=== PATIENT | male | born 1980 | race Two or more races ===

== ENCOUNTER 2017-09-27 20:38 | Emergency (ER) | payer SELFPAY ==
[2017-09-27 20:42] VITALS: BP 132/80; PULSE 75; TEMP 98.4; BMI 28.5
--- NOTE | 2017-09-27 20:45 | PDOC ---
Rapid Medical Evaluation Chief Complaint: Chest Pain Time Seen by Provider: 09/27/17 20:42 Medical Evaluation: Allergies Allergy/AdvReac Type Severity Reaction Status Date / Time No Known Allergies Allergy Unverified 09/27/17 20:40 09/27/17 20:42 I have performed a brief in-person evaluation of the patient. The patient presents with chief complaint of: left sided chest pain x 3 days. Reports pain being worse today with dizziness and pain with deep breathing. Denies nausea or diaphoresis Pertinent physical exam findings are: NAD lungs clear bilaterally heart s1 s2 non tender chest abdomen with no tenderness I have ordered the following: ekg, labs The patient will proceed to the ED for further evaluation.
[2017-09-27 21:28] LABS: BASO % 0.8 % (0-2.0); EOS % 2.8 % (0-4.5); HEMATOCRIT 39.4 % (35.4-49); HEMOGLOBIN 13.2 GM/dL (11.7-16.9); LYMPH % 52.1 % (8-40); MCH 29.4 pg (25.7-33.7); MCHC 33.5 g/dl (32.0-35.9); MEAN CELL VOLUME 87.8 fl (80-96); MONO % 11.4 % (3.8-10.2); NEUT % 32.9 % (42.8-82.8); PLATELET COUNT 289 K/MM3 (134-434); RBC 4.49 M/mm3 (4.00-5.60); RDW 13.5 % (11.9-15.9); WHITE BLOOD COUNT 3.6 K/mm3 (4.0-10.0)
[2017-09-27 21:39] LABS: ALBUMIN 3.5 g/dl (3.4-5.0); ANION GAP 8 (8-16); BLOOD UREA NITROGEN 12 mg/dL (7-18); CALCIUM 8.5 mg/dL (8.5-10.1); CHLORIDE 104 mmol/L (98-107); CO2 27 mmol/L (21-32); CREATININE 0.8 mg/dL (0.7-1.3); GLUCOSE,RANDOM 82 mg/dL (74-106); POTASSIUM 4.1 mmol/L (3.5-5.1); SGOT/AST 46 U/L (15-37); SGPT/ALT 54 U/L (12-78); SODIUM 139 mmol/L (136-145)
[2017-09-27 21:42] LABS: ALK PHOS 83 U/L (45-117); BILIRUBIN,TOTAL 0.2 mg/dL (0.2-1.0); TOT PROT 8.2 g/dl (6.4-8.2)
--- NOTE | 2017-09-28 12:17 | EKG ---
Test Reason : Blood Pressure : / mmHG Vent. Rate : 067 BPM Atrial Rate : 067 BPM P-R Int : 122 ms QRS Dur : 100 ms QT Int : 426 ms P-R-T Axes : 036 075 032 degrees QTc Int : 450 ms NORMAL SINUS RHYTHM NORMAL ECG WHEN COMPARED WITH ECG OF 04-OCT-2013 13:58, NONSPECIFIC T WAVE ABNORMALITY NO LONGER EVIDENT IN LATERAL LEADS Confirmed by MD CHILANGO, ERIS ([id number]) on 09/28/2017 12:17:25 PM Referred By: Confirmed By:ERIS KEE MD
== END 2017-09-27 22:36 | disposition left against medical advice (07) ==
LOC: JER 20:38
DX: R07.89 Other chest pain (principal)
CPT/HCPCS: 36415; 80053; 82550; 82553; 84484; 85025; 93005; 93010; 99281-25

== ENCOUNTER 2019-02-17 21:42 | Emergency (ER) | payer OTHER, SELFPAY | END 2019-02-18 08:05 | disposition home or self-care (01) | LOC: JER 21:42 | DX: H66.92 Otitis media, unspecified, left ear (principal) ==

== ENCOUNTER 2019-04-17 11:59 | Emergency (ER) | payer OTHER ==
[2019-04-17] MEDS ORDERED: SODIUM CHLORIDE 1,000 ML IV STA (12:13)
[2019-04-17] MEDS ORDERED: ONDANSETRON 4 MG/2 ML VIAL IVPUSH ONE (12:13)
--- NOTE | 2019-04-17 12:13 | PDOC ---
Rapid Medical Evaluation Time Seen by Provider: 04/17/19 12:11 Medical Evaluation: Allergies Allergy/AdvReac Type Severity Reaction Status Date / Time No Known Allergies Allergy Unverified 02/18/19 00:14 04/17/19 12:11 I have performed a brief in-person evaluation of this patient. The patient presents with a chief complaint of: upper abdominal pain x1 month. Blood streaked vomitus. Pertinent physical exam findings: epigastric and RUQ tenderness I have ordered the following: abd w/u The patient will proceed to the ED for further evaluation. Discharge Disposition - Diagnosis Abdominal pain - Referrals - Patient Instructions - Post Discharge Activity
[2019-04-17 12:20] VITALS: BP 113/87; PULSE 70; TEMP 98.6; BMI 32.5
[2019-04-17] MEDS ORDERED: morphine CARPU-JECT 2 MG/1 ML DISP.SYRIN IVPUSH ONE (12:51)
[2019-04-17] MEDS ORDERED: PANTOPRAZOLE SODIUM 40 MG in SODIUM CHLORIDE 100 ML IVPB ONE (12:52)
[2019-04-17] MEDS ORDERED: MORPHINE SULFATE 2 MG/ML VIAL ONE (13:17)
[2019-04-17] MEDS ORDERED: PANTOPRAZOLE SODIUM 40 MG VIAL ONE (13:18)
[2019-04-17] MEDS ORDERED: ONDANSETRON 4 MG/2 ML VIAL ONE (13:18)
[2019-04-17 13:58] LABS: HEMATOCRIT 39.1 % (35.4-49); HEMOGLOBIN 13.5 GM/dL (11.7-16.9); LYMPH % 62.2 % (8-40); MCH 30.5 pg (25.7-33.7); MCHC 34.6 g/dl (32.0-35.9); MEAN CELL VOLUME 88.2 fl (80-96); MEAN PLT VOLUME 7.5 fl (7.5-11.1); NEUT % 23.8 % (42.8-82.8); PLATELET COUNT 307 K/MM3 (134-434); RBC 4.44 M/mm3 (4.00-5.60); RDW 12.5 % (11.9-15.9); WHITE BLOOD COUNT 4.3 K/mm3 (4.0-10.0)
[2019-04-17 14:33] LABS: ALBUMIN 3.6 g/dl (3.4-5.0); ALK PHOS 67 U/L (45-117); ANION GAP 5 MMOL/L (8-16); BILIRUBIN,TOTAL 0.5 mg/dL (0.2-1); CALCIUM 8.6 mg/dL (8.5-10.1); CHLORIDE 105 mmol/L (98-107); CO2 28 mmol/L (21-32); CREATININE 0.9 mg/dL (0.55-1.3); GLUCOSE,RANDOM 109 mg/dL (74-106); LIPASE 153 U/L (73-393); POTASSIUM 4.2 mmol/L (3.5-5.1); SGOT/AST 36 U/L (15-37); SGPT/ALT 44 U/L (13-61); SODIUM 138 mmol/L (136-145); TOT PROT 8.2 g/dl (6.4-8.2)
[2019-04-17 14:47] LABS: URINE APPEARANCE CLOUDY; URINE BILIRUBIN NEGATIVE (NEGATIVE); URINE COLOR YELLOW; URINE GLUCOSE (UA) NEGATIVE (NEGATIVE); URINE KETONE NEGATIVE (NEGATIVE); URINE LEUK ESTERASE NEGATIVE (NEGATIVE); URINE NITRITE NEGATIVE (NEGATIVE); URINE PROTEIN NEGATIVE (NEGATIVE)
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
[2019-04-17 16:41] LABS: PLATELET ESTIMATE ADEQUATE
== END 2019-04-17 19:10 | disposition home or self-care (01) ==
LOC: JER 11:59
PROC: 3E033GC Introduction of Other Therapeutic Substance into Peripheral Vein, Percutaneous Approach (ICD-10-PCS; principal; 2019-04-17)
PROC: 3E033NZ Introduction of Analgesics, Hypnotics, Sedatives into Peripheral Vein, Percutaneous Approach (ICD-10-PCS; 2019-04-17)
PROC: 3E033GC Introduction of Other Therapeutic Substance into Peripheral Vein, Percutaneous Approach (ICD-10-PCS; 2019-04-17)
DX: K21.9 Gastro-esophageal reflux disease without esophagitis (principal); K80.20 Calculus of gallbladder without cholecystitis without obstruction; Z98.61 Coronary angioplasty status
CPT/HCPCS: 36415; 76705-TC; 80053; 81003; 82550; 82553; 83690; 84484; 85025; 86850; 86900; 86901; 96365; 96375; 99283-25; J7030

== ENCOUNTER 2020-02-27 19:34 | Emergency (ER) | payer OTHER ==
--- NOTE | 2020-02-27 19:38 | PDOC ---
Rapid Medical Evaluation Time Seen by Provider: 02/27/20 19:36 Medical Evaluation: Allergies Allergy/AdvReac Type Severity Reaction Status Date / Time No Known Allergies Allergy Unverified 08/22/13 11:22 02/27/20 19:36 I have performed a brief in-person evaluation of this patient. CC: swelling to right knee x3 days PE: injfrapatellar tenderness. Passive flexion beyond 90 degrees Orders: xray Patient will proceed to ED for further evaluation. Discharge Disposition - Diagnosis Knee pain - Referrals - Patient Instructions - Post Discharge Activity
[2020-02-27 19:39] VITALS: BP 140/62; PULSE 66; TEMP 98.2; BMI 32.5
--- NOTE | 2020-02-27 19:51 | PDOC ---
History of Present Illness - General Chief Complaint: Pain, Acute Stated Complaint: RT KNEE SWOLLEN Time Seen by Provider: 02/27/20 19:36 History Source: Patient - History of Present Illness Initial Comments: 02/27/20 20:09 39-year-old male complaining of right knee pain and swelling with swelling to calf and foot for the last 2 to 3 days. Patient reports that he was doing some squats has pain to the right lateral knee. Patient is able to weight-bear with assistance, and able to kick out without pain. Denies direct trauma to the knee or fall or injury. Past History - Medical History Allergies/Adverse Reactions: Allergies Allergy/AdvReac Type Severity Reaction Status Date / Time No Known Allergies Allergy Unverified 02/27/20 19:39 Home Medications: Ambulatory Orders Atorvastatin Ca [Lipitor] 40 mg PO HS #30 tablet 12/28/19 Blood Pressure Kit-Extra Large [Blood Pressure Monitor] 1 each MC DAILY #1 kit 12/28/19 Sennosides/Docusate Sodium [Senna-Docusate Sodium Tablet] 1 each PO HS #30 tablet 12/28/19 Nicotine Polacrilex [Nicotine Gum] 4 mg BC Q2H PRN #1 box 01/10/20 Pantoprazole Sodium [Protonix -] 40 mg PO DAILY #30 tab 01/23/20 Atorvastatin Ca [Lipitor] 40 mg PO HS 02/15/20 Gabapentin 600 mg PO TID 02/15/20 Buprenorphine HCl/Naloxone HCl [Suboxone 12 mg-3 mg Sl Film] 1 each SL DAILY #7 film MDD 1 02/23/20 Naloxone HCl [Narcan] 4 mg NS ASDIR PRN #1 spray 02/23/20 Nicotine [Nicotine Patch 21 mg/24 hr] 1 each TD DAILY #30 patch.td24 02/23/20 Cardiac Disorders: Yes COPD: No Dementia: No GI Disorders: Yes Hypercholesterolemia: Yes Kidney Stones: No Liver Disease: Yes (elevated LFTs) - Surgical History Appendectomy: No Cardiac Surgery: Yes (ANGIOPLASTY FOR ONE BLOCKAGE. WAS ON ASPIRIN THERAPY. STOPPED. in 2007) Cholecystectomy: No Lung Surgery: No Neurologic Surgery: No Orthopedic Surgery: No - Reproductive History Testicular Surgery: No - Immunization History Immunization Up to Date: No - Psycho-Social/Smoking History Smoking History: Current every day smoker Have you smoked in the past 12 months: No Number of Cigarettes Smoked Daily: 10 Cigars Per Day: 0 Information on smoking cessation initiated: Yes 'Breaking Loose' booklet given: 09/30/13 - Substance Abuse Hx (Audit-C & DAST Scrn) How often the patient has a drink containing alcohol: Never Score: In Men: 4 or > Positive; In Women: 3 or > Positive: 0 Screen Result (Pos requires Nsg. Audit-10AR): Negative In the last yr the pt used illegal drug/Rx for NonMed reason: Yes Score: Yes response is considered Positive: 1 Screen Result (Positive result requires Nsg. DAST-10): Positive Review of Systems - Review of Systems Able to Perform ROS?: Yes Is the patient limited Turkish proficient: No Musculoskeletal: Yes: Other (right knee pain ) *Physical Exam - Vital Signs Last Vital Signs Temp Pulse Resp BP Pulse Ox 98.2 F 66 18 140/62 98 02/27/20 19:35 02/27/20 19:35 02/27/20 19:35 02/27/20 19:35 02/27/20 19:35 - Physical Exam General Appearance: Yes: Appropriately Dressed Extremity: positive: Pedal Edema (+ 2 calf/ pedal edema), Other (full rom to right knee, able to leg raise. lateral knee tenderness) Integumentary: positive: Dry, Warm Neurologic: positive: Fully Oriented, Alert, Normal Mood/Affect ED Progress Note - Progress Note Progress Note: 02/27/20 23:56 A: knee pain/ calf edema P: xray ultrasound : r/o dvt 02/27/20 23:56 Discharge - Discharge Information Problems reviewed: Yes Clinical Impression/Diagnosis: Knee pain Qualifiers: Chronicity: acute Laterality: right Qualified Code(s): M25.561 - Pain in right knee Joint effusion of knee Qualifiers: Laterality: right Qualified Code(s): M25.461 - Effusion, right knee Disposition: HOME - Follow up/Referral Referrals: Alban Robles MD [Staff Physician] - Call tomorrow Cesar Kaiser DO [Staff Physician] - Call tomorrow - Patient Discharge Instructions Patient Printed Discharge Instructions: DI for Knee Effusion Additional Instructions: use crutches as instructed. weight bear as tolerated. follow up with orthopedic as soon as possible elevated your leg , apply ice to the area return for any worsening symptoms. - Post Discharge Activity Work/Back to School Note: Back to Work
[2020-02-27] MEDS ORDERED: ACETAMINOPHEN 500 MG TABLET (FP) PO ONE (20:01)
[2020-02-27] MEDS ORDERED: ACETAMINOPHEN 500 MG TABLET (FP) ONE (20:24)
== END 2020-02-27 22:04 | disposition home or self-care (01) ==
LOC: JERFT 19:34
DX: M25.561 Pain in right knee (principal); M25.461 Effusion, right knee
CPT/HCPCS: 73560-TC-RT-FY; 93971-TC; 99284-25

== ENCOUNTER 2020-03-13 10:42 | Emergency (ER) | payer OTHER ==
[2020-03-13 10:51] VITALS: BMI 33.9
[2020-03-13] MEDS ORDERED: ACETAMINOPHEN 1000 MG/100 ML VIAL (NON FORMULARY) IVPB ONE (11:48)
[2020-03-13] MEDS ORDERED: METOCLOPRAMIDE HCL INJECTION 10 MG/2 ML VIAL IVPUSH ONE (11:48)
[2020-03-13] MEDS ORDERED: METOCLOPRAMIDE HCL INJECTION 10 MG/2 ML VIAL ONE (12:10)
[2020-03-13] MEDS ORDERED: ACETAMINOPHEN INJECTION 100 ML IVPB ONE (12:10)
[2020-03-13 12:29] LABS: BASO % 0.7 % (0-2.0); EOS % 6.3 % (0-4.5); HEMATOCRIT 35.9 % (35.4-49); HEMOGLOBIN 12.1 GM/dL (11.7-16.9); LYMPH % 57.4 % (8-40); MCH 30.3 pg (25.7-33.7); MCHC 33.6 g/dl (32.0-35.9); MEAN CELL VOLUME 89.9 fl (80-96); MEAN PLT VOLUME 7.5 fl (7.5-11.1); MONO % 12.4 % (3.8-10.2); NEUT % 23.2 % (42.8-82.8); PLATELET COUNT 262 K/MM3 (134-434); RBC 3.99 M/mm3 (4.00-5.60); RDW 12.9 % (11.9-15.9)
[2020-03-13 12:59] LABS: ALBUMIN 3.2 g/dl (3.4-5.0); BILIRUBIN,TOTAL 0.2 mg/dL (0.2-1); BLOOD UREA NITROGEN 12.5 mg/dL (7-18); CALCIUM 8.7 mg/dL (8.5-10.1); CREATININE 0.9 mg/dL (0.55-1.3); TOT PROT 7.3 g/dl (6.4-8.2)
--- NOTE | 2020-03-13 13:41 | PDOC ---
Documentation entered by Lydia Barksdale SCRIBE, acting as scribe for Ileana Maurice MD. Ileana Maurice MD: This documentation has been prepared by the Apolonia madrigal Brenda, SCRIBE, under my direction and personally reviewed by me in its entirety. I confirm that the documentation accurately reflects all work, treatment, procedures, and medical decision making performed by me. History of Present Illness - General Chief Complaint: Lightheaded Stated Complaint: DIZZNESS/HEADACHE Time Seen by Provider: 03/13/20 11:17 History Source: Patient Exam Limitations: No Limitations - History of Present Illness Initial Comments: 03/13/20 11:44 39 YOM with a significant PMH of opiate dependance (on suboxone daily), GERD, chronic back pain, nicotine dependance, CAD s/p angioplasty and pre-diabetes who presents to the ED for evaluation of 2 days of dizziness and a frontal headache. The patient states that for the past 2 days he has been feeling dizzy, accompanied by acute mild blurry vision and mild SOB. He also endorses a frontal headache, that he states is pressure-like in nature, 2 episodes of NBNB vomiting, weakness, mild chest pain, a mild cough and constipation. He also notes feeling ill upon eating. Denies blood thinners. Denies fever, chills, palpitation, Diarrhea, abdominal pain, bladder and bowel problems, leg swelling, No sick contacts or travel. No new changes in medications. Allergies: None Past Medical History: opiate dependance (on suboxone daily), GERD, chronic back pain, nicotine dependance, CAD s/p angioplasty and pre-diabetes Social history: Recent smoker (uses patch), opiate dependance Surgical history: Angioplasty Meds: as documented in EMR 03/13/20 14:05 Past History - Medical History Allergies/Adverse Reactions: Allergies Allergy/AdvReac Type Severity Reaction Status Date / Time No Known Allergies Allergy Unverified 03/13/20 10:51 Home Medications: Ambulatory Orders Nicotine [Nicotine Patch 21 mg/24 hr] 1 each TD DAILY #30 patch.td24 02/23/20 Buprenorphine HCl/Naloxone HCl [Suboxone 12 mg-3 mg Sl Film] 1 each SL DAILY #14 film MDD 2 03/01/20 Omeprazole 20 mg PO DAILY #30 tablet. 03/01/20 Cardiac Disorders: Yes COPD: No Dementia: No GI Disorders: Yes (gerd) Hypercholesterolemia: Yes Kidney Stones: No Liver Disease: Yes (elevated LFTs) - Surgical History Appendectomy: No Cardiac Surgery: Yes (stent 2008) Cholecystectomy: No Lung Surgery: No Neurologic Surgery: No Orthopedic Surgery: No - Reproductive History Testicular Surgery: No - Immunization History Immunization Up to Date: No - Psycho-Social/Smoking History Smoking History: Current every day smoker Have you smoked in the past 12 months: No Number of Cigarettes Smoked Daily: 10 Cigars Per Day: 0 Information on smoking cessation initiated: No 'Breaking Loose' booklet given: 09/30/13 - Substance Abuse Hx (Audit-C & DAST Scrn) How often the patient has a drink containing alcohol: Never Score: In Men: 4 or > Positive; In Women: 3 or > Positive: 0 Screen Result (Pos requires Nsg. Audit-10AR): Negative Review of Systems - Review of Systems Able to Perform ROS?: Yes Comments:: 03/13/20 11:52 Constitutional: no fevers or chills. HEENT: (+) Headache (+) Dizziness (+) blurry vision. no vision loss. no eye pain/discharge or tinnitis. No congestion. No hearing disturbances. CVS: (+) CP. no syncope. Resp: (+) Mild SOB (+) Mild Cough Gastrointestinal: (+) Nausea (+) Vomiting. (+) Constipation. no abdominal pain. Genitourinary: no urinary sx, hematuria. MUSCULOSKELETAL: No joint pain and swelling. No neck or back pain. SKIN: no redness or skin changes, no discharge, no rash. No wounds. Hematologic: no easy bruising/bleeding. NEUROLOGIC: No LOC or altered mental status. No numbness or tingling. Psych: no anxiety or depression Allergic/Immunologic: no allergies All other systems reviewed and negative, or as documented in HPI. 03/13/20 14:05 *Physical Exam - Vital Signs Last Vital Signs Temp Pulse Resp BP Pulse Ox 97.8 F 61 18 97/59 L 99 03/13/20 10:49 03/13/20 10:49 03/13/20 10:49 03/13/20 10:49 03/13/20 10:49 - Physical Exam 03/13/20 11:56 General: Well appearing, awake and alert, NAD. HEENT: NCAT, PERRL, EOMI, clear conjunctiva, anicteric, moist mucous membranes, clear oropharynx, no oral lesions.. Neck: neck supple, FROM Resp: CTAB, normal and even respirations, no respiratory distress CVS: RRR, no murmurs, 2+ peripheral pulses throughout, no peripheral edema Abdomen: (+) Right sided vertical surgical scar, well healed. soft, NTND, no rebound or guarding. No CVAT. Back: nontender, normal inspection and ROM MSK: no edema, FLORES x4, ROM intact. No clubbing or cyanosis. normal bulk and tone. Extremities: no calf tenderness Neuro: Alert, oriented to person time and place. CN II-XII grossly intact. Strength prox and distally 5/5 throughout. Sensation grossly intact to light touch. FLORES x4. No cerebellar signs, no dysmetria, bilateral finger to nose and heel to blackman equal and symmetric. Speech clear. Skin: warm and well perfused, cap refill <2 sec, normal color 03/13/20 14:05 Heart Score/ECG Review #1 ECG reviewed & interpreted by me at: 14:10 General ECG Interpretation: Sinus Rhythm 03/13/20 14:04 EKG sinus bradycardia, 50 bpm, no interval abnormalities, narrow QRS, ST and T wave segments and morphology normal. Nonspecific T wave abnormalities ED Treatment Course - LABORATORY CBC & Chemistry Diagram: 03/13/20 12:15 03/13/20 12:15 Medical Decision Making - Medical Decision Making 03/13/20 13:38 Vital Signs Temp Pulse Resp BP Pulse Ox 97.8 F 61 18 97/59 L 99 03/13/20 10:49 03/13/20 10:49 03/13/20 10:49 03/13/20 10:49 03/13/20 10:49 vitals reviewed, wnl. mentating, no fever, nontoxic appearing. no focal neuro deficits primarily headache since yesterday DDX headache: migraine, tension, cluster headache, SAH, CVA, head bleed/ICH. - no trauma no infectious sx, no meningeal findings or sx. no chest pain or sob. MDM: The patient presents with an acute onset headache for 2 day in duration. No history of anticoagulation, trauma, , cancer or immunocompromised state. Mental status was normal, no neurological deficits were noted. Based on the patient's history and physical there is very low clinical suspicion for significant intracranial pathology. The headache was NOT sudden onset, NOT maximal at onset, there are NO neurologic findings, the patient does NOT have a fever, the patient does NOT have any jaw claudication, the patient does NOT endorse a clotting disorder, patient DENIES any trauma or eye pain and the headache is NOT associated with dizziness or ataxia. Kernig and Brudzinski signs are negative, no petechiae, no photophobia, no dysarthria, no facial asymmetry, and no focal deficits. Very low clinical suspicion for meningitis. No evidence of subarachnoid hemorrhage, intracranial bleed, meningitis, encephalitis, or intracranial mass. Patient denies new weakness on one side of the body, diplopia, vertigo, slurred speech, headache, or difficulty walking. IV was placed and tylenol/reglan given with improvement/relief of symptoms. CT head was negative for acute bleed, infarct, mass, or shift. labs and lytes also wnl, neg trop, EKG is unremarkable, no ischemic findings, sinus bradycardia.. doubt ACS or arrhythmia. no LP indicated as no s/s to suggest meningitis. he has no chest pain or sob. headache has resolved, feels improved, gait stable, alton PO intake, wishes to go home. The patient improved significantly and was discharged in stable condition. Recommendations were given for follow-up with PCP in 1-2 days and to return to the ED for worsening of headache or any other concerns 03/13/20 13:40 03/13/20 14:06 03/13/20 14:07 Discharge - Discharge Information Problems reviewed: Yes Clinical Impression/Diagnosis: Dizziness Headache Qualifiers: Headache type: unspecified Headache chronicity pattern: acute headache Intractability: not intractable Qualified Code(s): R51 - Headache Condition: Improved Disposition: HOME - Admission No - Follow up/Referral Referrals: Taz Abrams MD [Staff Physician] - Santiago Epstein MD [Staff Physician] - Colt Rivera MD [Staff Physician] - - Patient Discharge Instructions Patient Printed Discharge Instructions: DI for Headache Additional Instructions: 1) Please follow-up with your primary care doctor in the next 1-2 days. Please call tomorrow for for any urgent issues. please follow up with neurologist for management of your headache. referrals have been provided. 2) You were given a copy of the tests performed today. Please bring the results with you and review them with your primary care doctor. Your laboratory / imaging results were normal, including CT scan 3) If you have any worsening of symptoms or any other concerns please return to the ED immediately. Return if worsening symptoms including fevers, headache, vomiting, visual or hearing disturbances, abdominal pain, chest pain, shortness of breath, syncope, dehydration, inability to take things by mouth/vomiting, altered mental status, or worsening concerning symptoms. 4) Please continue taking your home medications as directed. you can take t ylenol 650-975 mg every 6 hours as needed OR ibuprofen 400-600mg every 6 hours as needed for your headache Stay well hydrated and rest adequately. Make an appointment. If you cannot follow-up with your primary care doctor please return to the ED - Post Discharge Activity Work/Back to School Note: Back to Work
[2020-03-13 14:24] VITALS: BP 110/60; PULSE 60; TEMP 97.4
--- NOTE | 2020-03-14 12:37 | EKG ---
Test Reason : Blood Pressure : / mmHG Vent. Rate : 049 BPM Atrial Rate : 049 BPM P-R Int : 156 ms QRS Dur : 088 ms QT Int : 456 ms P-R-T Axes : 040 074 033 degrees QTc Int : 411 ms SINUS BRADYCARDIA OTHERWISE NORMAL ECG WHEN COMPARED WITH ECG OF 18-FEB-2019 04:28, NO SIGNIFICANT CHANGE WAS FOUND Confirmed by JASWINDER ANDERSON MD ([id number]) on 03/14/2020 12:36:49 PM Referred By: Confirmed By:JASWINDER ANDERSON MD
== END 2020-03-13 14:36 | disposition home or self-care (01) ==
LOC: JER 10:42
PROC: 3E033NZ Introduction of Analgesics, Hypnotics, Sedatives into Peripheral Vein, Percutaneous Approach (ICD-10-PCS; principal; 2020-03-13)
PROC: 3E033GC Introduction of Other Therapeutic Substance into Peripheral Vein, Percutaneous Approach (ICD-10-PCS; 2020-03-13)
DX: R51 Headache (principal)
CPT/HCPCS: 36415; 70450-TC; 80053; 82550; 82553; 84484; 85025; 93005; 93010; 99285-25; J0131

== ENCOUNTER 2020-04-05 16:20 | Inpatient (IN) | payer OTHER ==
[2020-04-05 17:22] VITALS: BMI 32.4
--- NOTE | 2020-04-05 19:09 | BHS.RME ---
Substance Use & Tx History - Substance Use History Fentanyl Substance amount: 15 bags Frequency of use: Daily Substance route: Injection (ex: intravenous or skin popping) Date of Last Use: 04/05/20 - Last Treatment Date of last treatment: 06/29/2012- 07/01/2012 Where was last treatment: Detox Physical/Psych/Mental Status - Behavior General Behavior: Decreased activity Eye Contact: Normal - Cooperativeness Cooperativeness: Cooperative - Thinking Thought Processes: Logical Thought content: Future oriented - Physical Health Problems Is patient presently having any pain?: Yes (back pain) Does patient presently have any injuries (include location): No Does patient currently have a fever: No Is patient : No COWS - Scale Resting Pulse: 0= [place] 80 or Below Sweatin=Flushed/Facial Moisture Restless Observation: 0= Sits Still Pupil Size: 0= Normal to Room Light Bone or Joint Aches: 4=Acute Joint/Muscle Pain Runny Nose/ Eye Tearin= None GI Upset > 30mins: 1= Stomach Cramp Tremor Observation: 2= Slight Tremor Visible Yawning Observation: 1= 1-2x During Session Anxiety or Irritability: 4=Extreme Anxiety Goose Flesh Skin: 3=Piloerection COWS Score: 17 Treatment Recommendation - Level of Care Level of Care: Opioid Treatment Program (OTP)
--- NOTE | 2020-04-05 19:15 | HP ---
COWS - Scale Resting Pulse: 0= [place] 80 or Below Sweatin=Flushed/Facial Moisture Restless Observation: 0= Sits Still Pupil Size: 0= Normal to Room Light Bone or Joint Aches: 4=Acute Joint/Muscle Pain Runny Nose/ Eye Tearin= None GI Upset > 30mins: 1= Stomach Cramp Tremor Observation: 2= Slight Tremor Visible Yawning Observation: 1= 1-2x During Session Anxiety or Irritability: 4=Extreme Anxiety Goose Flesh Skin: 3=Piloerection COWS Score: 17 CIWA Score - Admission Criteria OASAS Guidelines: Admission for Medically Managed Detox: Requires at least one of the followin. CIWA greater than 12 2. Seizures within the past 24 hours 3. Delirium tremens within the past 24 hours 4. Hallucinations within the past 24 hours 5. Acute intervention needed for co occurring medical disorder 6. Acute intervention needed for co occurring psychiatric disorder 7. Severe withdrawal that cannot be handled at a lower level of care (continued vomiting, continued diarrhea, abnormal vital signs) requiring intravenous medication and/or fluids 8. Admitting History and Physical - Past Medical History Gastrointestinal: Yes: GERD Hepatobiliary: Yes: Cholecystitis, Hepatitis C, Other Psych: Yes: Addictions, Depression - Smoking History Smoking history: Current every day smoker Have you smoked in the past 12 months: No Aproximately how many cigarettes per day: 10 - Alcohol/Substance Use History of Substance Use: reports: Cocaine, Heroin - Social History ADL: Independent History of Recent Travel: No Admission ROS [facility] Chief Complaint: Opiate withdrawal symptoms Allergies/Adverse Reactions: Allergies Allergy/AdvReac Type Severity Reaction Status Date / Time No Known Allergies Allergy Unverified 04/05/20 19:49 History of Present Illness: 39 years old male with 3 months of Fentanyl dependent is seeking admission to detox. His last admission was for the 06/29/2012-07/01/2012 and he reports that he relapsed 2 months ago. He uses 15 bags of Fentanyl daily. He has medical history of GERD, chronic back pain, seizure, CAD and Pre-Diabetes, hyperlipidemia, Hep. C and psych. history of depression. He denies suicide a ttempt / suicidal ideation at this time. He is employed in construction, lives with his family and denies any legal issues. He reports blackouts and denies history of overdose. Exam Limitations: No Limitations - Ebola screening Have you traveled outside of the country in the last 21 days: No Have you had contact with anyone from an Ebola affected area: No Have you been sick,other than usual withdrawal symptoms: No Do you have a fever: No - Review of Systems Constitutional: Chills, Malaise, Night Sweats, Changes in sleep EENT: reports: No Symptoms Reported Respiratory: reports: No Symptoms reported Cardiac: reports: No Symptoms Reported GI: reports: Constipated, Nausea, Poor Fluid Intake, Abdominal cramping : reports: No Symptoms Reported Musculoskeletal: reports: Back Pain Integumentary: reports: Flushing Neuro: reports: Headache, Tremors Endocrine: reports: No Symptoms Reported Hematology: reports: No Symptoms Reported Psychiatric: reports: Mood/Affect Appropiate, Orientated x3, Anxious Other Systems: Reviewed and Negative Patient History - Patient Medical History Hx Anemia: No Hx Asthma: No Hx Chronic Obstructive Pulmonary Disease (COPD): No Hx Cancer: No Hx Cardiac Disorders: Yes (CAD) Hx Congestive Heart Failure: No Hx Hypertension: No Hx Hypercholesterolemia: Yes Hx Pacemaker: No HX Cerebrovascular Accident: No Hx Seizures: Yes (Not on medication) Hx Diabetes: Yes (Pre- DM) Hx Gastrointestinal Disorders: Yes (GERD) Hx Liver Disease: No Hx Genitourinary Disorders: No Hx Sexually Transmitted Disorders: No Hx Renal Disease (ESRD): No Hx Thyroid Disease: No Hx Human Immunodeficiency Virus (HIV): No (Negative) Hx Hepatitis C: Yes (Not on medication) Hx Depression: Yes (Not on medication) Hx Suicide Attempt: No (Denies suicidal ideation at this timer) Hx Bipolar Disorder: No Hx Schizophrenia: No - Patient Surgical History Past Surgical History: Yes Hx Neurologic Surgery: No Hx Cataract Extraction: No Hx Cardiac Surgery: Yes (stent 2008) Hx Lung Surgery: No Hx Appendectomy: No Hx Cholecystectomy: No Hx Genitourinary Surgery: No Hx Orthopedic Surgery: No Anesthesia Reaction: No - PPD History Previous Implant?: Yes (PPD Positive) Documented Results: Positive w/o proof Implanted On Prior R Admission?: No PPD to be Administered?: No - Reproductive History Patient is a Female of Child Bearing Age (11 -55 yrs old): No (Male) - Smoking Cessation Smoking history: Current every day smoker Have you smoked in the past 12 months: No Aproximately how many cigarettes per day: 10 Hx Chewing Tobacco Use: No Initiated information on smoking cessation: Yes 'Breaking Loose' booklet given: 04/05/20 - Substance & Tx. History Hx Alcohol Use: No Hx Substance Use: Yes Substance Use Type: Marijuana, Opiates (Fentanyl) Hx Substance Use Treatment: Yes ([facility]) - Substances abused Other Other (specify): FENTANYL Substance route: Injection Frequency: Daily Amount used: 15 bags Age of first use: 38 Date of last use: 04/05/20 Admission Physical Exam S - Vital Signs Vital Signs: Vital Signs - 24 hr 04/05/20 17:18 Temperature 97.7 F Pulse Rate 77 Respiratory 20 Rate Blood Pressure 119/63 - Physical General Appearance: Yes: Moderate Distress, Tremorous, Sweating, Anxious HEENTM: Yes: Within Normal Limits Respiratory: Yes: Lungs Clear, Normal Breath Sounds, No Respiratory Distress Neck: Yes: Within Normal Limits Breast: Yes: Breast Exam Deferred Cardiology: Yes: Regular Rhythm, Regular Rate Abdominal: Yes: Normal Bowel Sounds Genitourinary: Yes: Within Normal Limits Back: Yes: Normal Inspection Musculoskeletal: Yes: Back pain Extremities: Yes: Tremors Neurological: Yes: Within Normal Limits Integumentary: Yes: Warm Lymphatic: Yes: Within Normal Limits - Diagnostic (1) Opioid dependence with withdrawal Current Visit: Yes Status: Acute (2) Nicotine dependence Current Visit: Yes Status: Chronic Qualifiers: Nicotine product type: cigarettes Substance use status: uncomplicated Qualified Code(s): F17.210 - Nicotine dependence, cigarettes, uncomplicated (3) Hyperlipidemia Current Visit: Yes Status: Chronic Qualifiers: Hyperlipidemia type: unspecified Qualified Code(s): E78.5 - Hyperlipidemia, unspecified (4) Seizure Current Visit: Yes Status: Chronic (5) Hep C w/o coma, chronic Current Visit: Yes Status: Chronic (6) CAD (coronary artery disease) Current Visit: Yes Status: Chronic (7) Pre-diabetes Current Visit: Yes Status: Chronic (8) Chronic back pain Current Visit: Yes Status: Chronic Qualifiers: Back pain location: low back pain (9) GERD (gastroesophageal reflux disease) Current Visit: Yes Status: Chronic Qualifiers: Esophagitis presence: esophagitis presence not specified Qualified Code(s): K21.9 - Gastro-esophageal reflux disease without esophagitis Comment: on protonix - f/u with primary Cleared for Admission S - Detox or Rehab [facility] Level of Care: Medically Managed Detox Regimen/Protocol: Methadone Claeared for Rehab Admission: No Breathalyzer - Breathalyzer Breathalyzer: 0 Urine Drug Screen - Test Device Lot number: [id number] Expiration date: 02/19/22 - Control Is test valid?: Yes - Results Drug screen NEGATIVE: No Urine drug screen results: THC-Marijuana, FEN-Fentanyl Inpatient Rehab Admission - Rehab Decision to Admit Inpatient rehab admission?: No
[2020-04-05] MEDS ORDERED: METHOCARBAMOL 500 MG TABLET PO PRN (19:49)
[2020-04-05] MEDS ORDERED: NICOTINE POLACRILEX 2 MG GUM BUC PRN (19:49)
[2020-04-05] MEDS ORDERED: ACETAMINOPHEN 325 MG TABLET (FP) PO PRN ×2 (19:49)
[2020-04-05] MEDS ORDERED: METHADONE HCL 10 MG TABLET (FOR DETOX USE ONLY) PO ONE (19:49)
[2020-04-05] MEDS ORDERED: MAGNESIUM CITRATE 300 ML BOTTLE PO PRN (19:49)
[2020-04-05] MEDS ORDERED: MAG HYDROX/AL HYDROX/SIMETH 30 ML UNIT-DOSE CUP PO PRN (19:49)
[2020-04-05] MEDS ORDERED: cloNIDine HCL 0.1 MG TABLET PO PRN (19:49)
[2020-04-05] MEDS ORDERED: BISMUTH SUBSALICYLATE 524 MG/30 ML UD PO PRN (19:49)
[2020-04-05] MEDS ORDERED: IBUPROFEN 400 MG TABLET (FP) PO PRN (19:49)
[2020-04-05] MEDS ORDERED: MENTHOL/PHENOL 1 EACH UD MM PRN (19:49)
[2020-04-05] MEDS ORDERED: hydrOXYzine PAMOATE 25 MG CAPSULE (FP) PO PRN (19:49)
[2020-04-05] MEDS ORDERED: ONDANSETRON *ODT* 4 MG TABLET SL PRN (19:49)
[2020-04-05] MEDS ORDERED: MAGNESIUM HYDROX 2400MG/30ML ORAL SUSPENSION 30 ML CUP PO PRN (19:49)
[2020-04-05] MEDS: THIAMINE HCL 100 MG TABLET (FP) PO SCH (22:35)
[2020-04-05] MEDS: MELATONIN 5 MG TABLETS PO SCH (22:35)
--- NOTE | 2020-04-06 09:04 | EKG ---
Test Reason : Blood Pressure : / mmHG Vent. Rate : 060 BPM Atrial Rate : 060 BPM P-R Int : 134 ms QRS Dur : 100 ms QT Int : 414 ms P-R-T Axes : 040 079 024 degrees QTc Int : 414 ms NORMAL SINUS RHYTHM NORMAL ECG WHEN COMPARED WITH ECG OF 13-MAR-2020 14:08, NO SIGNIFICANT CHANGE WAS FOUND Confirmed by Christa Das ([id number]) on 04/06/2020 9:03:47 AM Referred By: Ford Chapman Confirmed By:Christa Das
[2020-04-06 09:17] LABS: HEMATOCRIT 38.1 % (35.4-49); HEMOGLOBIN 12.8 GM/dL (11.7-16.9); MCH 29.8 pg (25.7-33.7); MCHC 33.5 g/dl (32.0-35.9); MEAN CELL VOLUME 88.9 fl (80-96); MEAN PLT VOLUME 8.4 fl (7.5-11.1); PLATELET COUNT 246 K/MM3 (134-434); RBC 4.29 M/mm3 (4.00-5.60); WHITE BLOOD COUNT 6.6 K/mm3 (4.0-10.0)
[2020-04-06 09:27] LABS: ALBUMIN 2.9 g/dl (3.4-5.0); BILIRUBIN,TOTAL 0.8 mg/dL (0.2-1); BLOOD UREA NITROGEN 11.1 mg/dL (7-18); CALCIUM 8.4 mg/dL (8.5-10.1); CREATININE 0.7 mg/dL (0.55-1.3); POTASSIUM 3.9 mmol/L (3.5-5.1); TOT PROT 7.3 g/dl (6.4-8.2)
[2020-04-06] MEDS ORDERED: METHADONE (DETOX) 20 MG, METHADONE (DETOX) 5 MG PO ONE (10:00)
[2020-04-06] MEDS ORDERED: METHADONE HCL 5 MG TABLET (FOR DETOX USE ONLY) ONE (10:14)
[2020-04-06] MEDS ORDERED: METHADONE HCL 10 MG TABLET (FOR DETOX USE ONLY) ONE (10:14)
[2020-04-06] MEDS: PANTOPRAZOLE 20 MG TABLET PO SCH (10:27)
[2020-04-06] MEDS: PRENATAL VITAMINS W/ FOLIC ACID TABLET (FP) PO SCH (10:29)
[2020-04-06] MEDS: NICOTINE 14 MG/24 HOURS TOPICAL PATCH TD SCH (10:29)
--- NOTE | 2020-04-06 11:46 | PN ---
BHS COWS - Scale Resting Pulse: 0= [place] 80 or Below Sweatin= Beads of Sweat on Face Restless Observation: 1= Difficult to Sit Still Pupil Size: 0= Normal to Room Light Bone or Joint Aches: 2= Severe Diffuse Aches Runny Nose/ Eye Tearin= None GI Upset > 30mins: 0= None Tremor Observation of Outstretched Hands: 2= Slight Tremor Visible Yawning Observation: 1= 1-2x During Session Anxiety or Irritability: 2=Irritable/Anxious Goose Flesh Skin: 0=Smooth Skin COWS Score: 11 S Progress Note (SOAP) Subjective: c/o sweats, irritability, anxiety, muscle aches, and shakes. Objective: 04/06/20 11:45 Vital Signs 04/06/20 04/06/20 06:36 08:45 Temperature 97.0 F L 97.3 F L Pulse Rate 89 68 Respiratory 18 18 Rate Blood Pressure 143/83 102/64 O2 Sat by Pulse 99 99 Oximetry (%) Laboratory Last Values WBC 6.6 K/mm3 (4.0-10.0) 04/06/20 07:45 RBC 4.29 M/mm3 (4.00-5.60) 04/06/20 07:45 Hgb 12.8 GM/dL (11.7-16.9) 04/06/20 07:45 Hct 38.1 % (35.4-49) 04/06/20 07:45 MCV 88.9 fl (80-96) 04/06/20 07:45 MCH 29.8 pg (25.7-33.7) 04/06/20 07:45 MCHC 33.5 g/dl (32.0-35.9) 04/06/20 07:45 RDW 13.0 % (11.9-15.9) 04/06/20 07:45 Plt Count 246 K/MM3 (134-434) 04/06/20 07:45 MPV 8.4 fl (7.5-11.1) D 04/06/20 07:45 Sodium 139 mmol/L (136-145) 04/06/20 07:45 Potassium 3.9 mmol/L (3.5-5.1) 04/06/20 07:45 Chloride 105 mmol/L (98-107) 04/06/20 07:45 Carbon Dioxide 30 mmol/L (21-32) 04/06/20 07:45 Anion Gap 5 MMOL/L (8-16) L 04/06/20 07:45 BUN 11.1 mg/dL (7-18) 04/06/20 07:45 Creatinine 0.7 mg/dL (0.55-1.3) 04/06/20 07:45 Est GFR (CKD-EPI)AfAm 135.86 04/06/20 07:45 Est GFR (CKD-EPI)NonAf 117.22 04/06/20 07:45 Random Glucose 104 mg/dL (74-106) 04/06/20 07:45 Calcium 8.4 mg/dL (8.5-10.1) L 04/06/20 07:45 Total Bilirubin 0.8 mg/dL (0.2-1) 04/06/20 07:45 AST 39 U/L (15-37) H 04/06/20 07:45 ALT 88 U/L (13-61) H 04/06/20 07:45 Alkaline Phosphatase 125 U/L (45-117) H 04/06/20 07:45 Total Protein 7.3 g/dl (6.4-8.2) 04/06/20 07:45 Albumin 2.9 g/dl (3.4-5.0) L 04/06/20 07:45 Labs noted. Assessment: 04/06/20 11:46 AOX3, in no acute respiratory distress. Full ROM, ambulating in the unit. Withdrawal symptoms. Plan: continue detox.
[2020-04-06] MEDS: MELATONIN 5 MG TABLETS PO SCH (22:40)
[2020-04-06] MEDS: THIAMINE HCL 100 MG TABLET (FP) PO SCH (22:41)
[2020-04-07] MEDS ORDERED: METHADONE HCL 10 MG TABLET (FOR DETOX USE ONLY) PO ONE (10:00)
[2020-04-07] MEDS: NICOTINE 14 MG/24 HOURS TOPICAL PATCH TD SCH (10:29)
[2020-04-07] MEDS: PRENATAL VITAMINS W/ FOLIC ACID TABLET (FP) PO SCH (10:29)
--- NOTE | 2020-04-07 12:12 | PN ---
BHS COWS - Scale Resting Pulse: 0= [place] 80 or Below Sweatin= Chills/Flushing Restless Observation: 0= Sits Still Pupil Size: 1= Pupils >than Normal Bone or Joint Aches: 1= Mild Discomfort Runny Nose/ Eye Tearin= Nasal Congestion GI Upset > 30mins: 1= Stomach Cramp Tremor Observation of Outstretched Hands: 1= Tremor [place], Not Seen Yawning Observation: 1= 1-2x During Session Anxiety or Irritability: 1=Feels Anxious/Irritable Goose Flesh Skin: 0=Smooth Skin COWS Score: 8 BHS Progress Note (SOAP) Subjective: 39 years old male was admitted on 04/05/20 for opiate withdrawal sx management treating with methadone detox regiment feels tired resting in bed comfortably trouble sleep at night limited conversation with staff Objective: 04/07/20 12:16 Vital Signs - 24 hr 04/06/20 04/06/20 04/07/20 13:28 16:44 06:29 Temperature 96.4 F L 96.9 F L 97.1 F L Pulse Rate 73 67 78 Respiratory 18 18 18 Rate Blood Pressure 106/67 109/68 129/78 O2 Sat by Pulse 99 98 Oximetry (%) 04/07/20 09:10 Temperature 98.2 F Pulse Rate 64 Respiratory 18 Rate Blood Pressure 128/78 O2 Sat by Pulse 98 Oximetry (%) Laboratory Tests 04/05/20 04/06/20 04/06/20 20:00 07:45 07:45 WBC 6.6 RBC 4.29 Hgb 12.8 Hct 38.1 MCV 88.9 MCH 29.8 MCHC 33.5 RDW 13.0 Plt Count 246 MPV 8.4 D Sodium Potassium Chloride Carbon Dioxide Anion Gap BUN Creatinine Est GFR (CKD-EPI)AfAm Est GFR (CKD-EPI)NonAf Random Glucose Calcium Total Bilirubin AST ALT Alkaline Phosphatase Total Protein Albumin Syphilis Serology Non-reactive COVID-19 (NOELLE) Not detected 04/06/20 07:45 WBC RBC Hgb Hct MCV MCH MCHC RDW Plt Count MPV Sodium 139 Potassium 3.9 Chloride 105 Carbon Dioxide 30 Anion Gap 5 L BUN 11.1 Creatinine 0.7 Est GFR (CKD-EPI)AfAm 135.86 Est GFR (CKD-EPI)NonAf 117.22 Random Glucose 104 Calcium 8.4 L Total Bilirubin 0.8 AST 39 H ALT 88 H Alkaline Phosphatase 125 H Total Protein 7.3 Albumin 2.9 L Syphilis Serology COVID-19 (NOELLE) lab noted Assessment: 04/07/20 12:16 opiate withdrawal Plan: methadone regiment
[2020-04-07] MEDS: PANTOPRAZOLE 20 MG TABLET PO SCH (12:16)
[2020-04-07 21:51] VITALS: TEMP 97.1
[2020-04-07] MEDS: THIAMINE HCL 100 MG TABLET (FP) PO SCH (22:49)
[2020-04-07] MEDS: MELATONIN 5 MG TABLETS PO SCH (22:49)
[2020-04-08] MEDS ORDERED: METHADONE HCL 5 MG TABLET (FOR DETOX USE ONLY) ONE (08:44)
[2020-04-08] MEDS ORDERED: METHADONE HCL 10 MG TABLET (FOR DETOX USE ONLY) ONE (08:44)
[2020-04-08 09:19] VITALS: BP 110/62; PULSE 64
[2020-04-08] MEDS: PANTOPRAZOLE 20 MG TABLET PO SCH (09:31)
[2020-04-08] MEDS: NICOTINE 14 MG/24 HOURS TOPICAL PATCH TD SCH (09:32)
[2020-04-08] MEDS: PRENATAL VITAMINS W/ FOLIC ACID TABLET (FP) PO SCH (09:32)
[2020-04-08] MEDS ORDERED: METHADONE (DETOX) 10 MG, METHADONE (DETOX) 5 MG PO ONE (10:00)
--- NOTE | 2020-04-08 11:10 | DS ---
[facility] Detox Discharge Summary Admission Date: 04/05/20 Discharge Date: 04/08/20 - History Present History: Opioid Dependence Additional Comments: 39 YEARS OLD MALE WAS ADMITTED ON 04/05/20 FOR OPIATE WITHDRAWAL SX MANAGEMENT TREATED WITH METHADONE DETOX REGIMENT MR PEDERSEN PREFERS TO GO TO [facility] DOWN STAIR THAT LIN IS NOT WORKING AND HE NEEDS MAINTENANCE IN [facility] DOSAGE MR IS ALERT ORIENTED X 3 SPEECH CLEARLY COHERENTLY AMBULATING STEADY GAITS General Appearance: Yes: Moderate Distress, MILD Tremorous, NO Sweating, MILD Anxious HEENTM: Yes: Within Normal Limits Respiratory: Yes: Lungs Clear, Normal Breath Sounds, No Respiratory Distress Neck: Yes: Within Normal Limits Breast: Yes: Breast Exam Deferred Cardiology: Yes: Regular Rhythm, Regular Rate Abdominal: Yes: Normal Bowel Sounds Genitourinary: Yes: Within Normal Limits Back: Yes: Normal Inspection Musculoskeletal: Yes: Back pain Extremities: Yes: Tremors Neurological: Yes: Within Normal Limits Integumentary: Yes: Warm Lymphatic: Yes: Within Normal Limits Pertinent Past History: TIME FOR DISCHARGE 51 MINUTES MR PEDERSEN INSISTS TO LEAVE THE DETOX UNIT AND TO GO TO [facility] TODAY TREATMENT TEAM MET WITH MR PEDERSEN THAT MR PEDERSEN HAS PERSONAL ID AND DIRECTLY FROM DETOX UNIT TO [facility] MR PEDERSEN PREFERS TO GO TO [facility] PERSONALLY TODAY MR PEDERSEN STATES THAT HE WAS IN THE [facility] AND WANTS TO RETURN TO [facility] TODAY AND WEDNESDAY IS THE BETTER TIME TO DO SO - Physical Exam Results Vital Signs: Vital Signs Temperature 97.1 F L 04/08/20 09:02 Pulse Rate 64 04/08/20 09:02 Respiratory Rate 20 04/08/20 09:02 Blood Pressure 110/62 04/08/20 09:02 O2 Sat by Pulse Oximetry (%) 99 04/07/20 21:02 Pertinent Admission Physical Exam Findings: OPIATE WITHDRAWAL Vital Signs - 24 hr 04/07/20 04/07/20 04/08/20 13:43 21:02 09:02 Temperature 98.1 F 97.1 F L 97.1 F L Pulse Rate 81 58 L 64 Respiratory 18 18 20 Rate Blood Pressure 126/68 110/67 110/62 O2 Sat by Pulse 98 99 Oximetry (%) Laboratory Tests 04/05/20 04/06/20 04/06/20 20:00 07:45 07:45 WBC 6.6 RBC 4.29 Hgb 12.8 Hct 38.1 MCV 88.9 MCH 29.8 MCHC 33.5 RDW 13.0 Plt Count 246 MPV 8.4 D Sodium Potassium Chloride Carbon Dioxide Anion Gap BUN Creatinine Est GFR (CKD-EPI)AfAm Est GFR (CKD-EPI)NonAf Random Glucose Calcium Total Bilirubin AST ALT Alkaline Phosphatase Total Protein Albumin Syphilis Serology Non-reactive COVID-19 (NOELLE) Not detected 04/06/20 07:45 WBC RBC Hgb Hct MCV MCH MCHC RDW Plt Count MPV Sodium 139 Potassium 3.9 Chloride 105 Carbon Dioxide 30 Anion Gap 5 L BUN 11.1 Creatinine 0.7 Est GFR (CKD-EPI)AfAm 135.86 Est GFR (CKD-EPI)NonAf 117.22 Random Glucose 104 Calcium 8.4 L Total Bilirubin 0.8 AST 39 H ALT 88 H Alkaline Phosphatase 125 H Total Protein 7.3 Albumin 2.9 L Syphilis Serology COVID-19 (NOELLE) LAB NOTED - Treatment Hospital Course: Detox Protocol Followed, Detoxed Safely, Responded well, Discharged Condition Good, Rehab Referral Accepted Patient has Accepted a Rehab Referral to: [facility] - Medication Discharge Medications: Ambulatory Orders Nicotine [Nicotine Patch 21 mg/24 hr] 1 each TD DAILY #30 patch.td24 02/23/20 Buprenorphine HCl/Naloxone HCl [Suboxone 12 mg-3 mg Sl Film] 1 each SL DAILY #14 film MDD 2 03/01/20 Omeprazole 20 mg PO DAILY #30 tablet. 03/01/20 - Diagnosis (1) Opioid dependence with withdrawal Current Visit: Yes Status: Acute (2) GERD (gastroesophageal reflux disease) Current Visit: Yes Status: Chronic Qualifiers: Esophagitis presence: esophagitis presence not specified Qualified Code(s): K21.9 - Gastro-esophageal reflux disease without esophagitis (3) Hep C w/o coma, chronic Current Visit: Yes Status: Chronic (4) Nicotine dependence Current Visit: Yes Status: Acute Qualifiers: Nicotine product type: cigarettes Substance use status: in withdrawal Qualified Code(s): F17.213 - Nicotine dependence, cigarettes, with withdrawal - AMA Did Patient Leave Against Medical Advice: No COWS (PN) - Opiate Withdrawal Resting Pulse: 0= [place] 80 or Below Sweatin= No chills or Flushing Restless Observation: 0= Sits Still Pupil Size: 1= Pupils >than Normal Bone or Joint Aches: 1= Mild Discomfort Runny Nose/ Eye Tearin= None GI Upset > 30mins: 1= Stomach Cramp Tremor Observation of Outstretched Hands: 1= Tremor [place], Not Seen Yawning Observation: 0= None Anxiety or Irritability: 1=Feels Anxious/Irritable Goose Flesh Skin: 0=Smooth Skin COWS Score: 5
[2020-04-09] MEDS ORDERED: METHADONE HCL 10 MG TABLET (FOR DETOX USE ONLY) PO ONE (10:00)
[2020-04-10] MEDS ORDERED: METHADONE HCL 5 MG TABLET (FOR DETOX USE ONLY) PO ONE (06:00)
== END 2020-04-08 11:49 | disposition home or self-care (01) | DRG 773 ==
LOC: YASAS 16:20 → Y3N 20:03
PROVIDERS: ADMIT Allergy & Immunology; ATTEND Allergy & Immunology
PROC: HZ2ZZZZ Detoxification Services for Substance Abuse Treatment (ICD-10-PCS; principal; 2020-04-05)
DX: F11.23 Opioid dependence with withdrawal (principal); F17.210 Nicotine dependence, cigarettes, uncomplicated; F32.9 Major depressive disorder, single episode, unspecified; I25.10 Atherosclerotic heart disease of native coronary artery without angina pectoris; Z95.5 Presence of coronary angioplasty implant and graft; K21.9 Gastro-esophageal reflux disease without esophagitis; B18.2 Chronic viral hepatitis C; E78.5 Hyperlipidemia, unspecified; M54.5 Low back pain; G89.29 Other chronic pain; R73.03 Prediabetes; Z86.69 Personal history of other diseases of the nervous system and sense organs
CPT/HCPCS: 36415; 80053; 85027; 86780; 93005; 93010; U0003

== ENCOUNTER 2020-04-14 00:11 | Emergency (ER) | payer OTHER ==
[2020-04-14] MEDS ORDERED: morphine CARPU-JECT 2 MG/1 ML DISP.SYRIN IM ONE (00:41)
[2020-04-14] MEDS ORDERED: MORPHINE SULFATE 2 MG/ML VIAL ONE (00:43)
[2020-04-14 00:46] VITALS: TEMP 99.3; BMI 32.5
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
--- OUTSIDE RECORDS SUMMARY | 2020-04-14 00:53 | XMS ---
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 [facility] unspecified, UNSPECIFIED, 12:20:00 AM Medical C enter without bleeding WITHOUT BLEEDING EDT R07.9 Chest pain, CHEST PAIN, Diagnosis 02/17/2019 [facility] unspecified UNSPECIFIED 12:20:[address] EDT F17.210 Nicotine NICOTINE Diagnosis 02/14/2019 [facility] dependence, DEPENDENCE, 07:35:[address] cigarettes, CIGARETTES, EDT uncomplicated UNCOMPLICATED V67.9 UNSPECIFIED FOLLOW UP EXAM Diagnosis 09/20/2018 DENEEN ([facility] FOLLOW-UP 07:11:12 PM [place] EXAMINATION [facility]) Surgeries/Procedures Procedure Description Date Indications Data Source(s) Alcohol/drug screening 03/22/2019 NEXTG EN ([facility] 12:00:00 AM EDT - [facility] dical 03/22/2019 [place]) 12:00:00 AM EDT O-CM2 CASE MANAGEMENT 04/28/2018 eCW2 ( [place] [facility] Results ID Date Data Source [id number] 04/05/2020 08:00:00 PM EDT [facility] Name Value Range Interpretation Description Data Sup porting Code Source(s) Document(s ) SARS [facility] coronavirus 2 RNA This lab was ordered by [facility] Ac [facility] Bill Inter and reported by [facility]. ID Date Data Source [id number] 01/25/2020 12:00:00 AM EDT [facility] Name Value Range Interpretation Code Description Data Marley rce(s) Supporting Document(s ) 2019-nCoV [facility] RNA XXX NOELLE+probe- Imp This lab was ordered by [facility] and reported by [facility]. ID Date Data Source Urinalysis.[id number] 03/09/2019 01:00:00 AM EDT [facility] 0 Name Value Range Interpretation Description Data Sup porting Code Source(s) Document(s ) Glucose NEGATIVE <content [facility] [Mass/volume] styleCode="[facility] in Urine by d">Urine Medical Test strip Glucose Center </content>NEGA TIVE MG/DL<content styleCode="Kaur lics"> (NEGATIVE MG/DL)</conten t> Color of Urine YELLOW <content [facility] styleCode="Will Wilson d">Color, Medical Urine Center </content>YELL OW <content styleCode="Kaur lics"> (YELLOW )</content> UNK NEGATIVE <content [facility] styleCode="Will Wilson d">Urine Medical Bilirubin Center </content>NEGA TIVE <content styleCode="Kaur lics"> (NEGATIVE )</content> UNK CLEAR <content [facility] styleCode="Will Wilson d">Urine Medical Clarity Center </content>NELIA R <content styleCode="Kaur lics"> (CLEAR )</content> Ketones NEGATIVE <content [facility] [Mass/volume] styleCode="Will Wilson in Urine by d">Urine Medical Test strip Ketone Center </content>NEGA TIVE MG/DL<content styleCode="Kaur lics"> (NEGATIVE MG/DL)</conten t> Hemoglobin NEGATIVE <content [facility] [Presence] in styleCode="Will Wilson Urine by Test d">Urine Blood Medical strip </content>NEGA Center TIVE <content styleCode="Kaur lics"> (NEGATIVE )</content> pH of Urine by 4.5-8.0 <content [facility] Test strip styleCode="Will Wilson d">Urine pH Medical </content>6.0 Center <content styleCode="Kaur lics"> (4.5-8.0 )</content> Urobilinogen 0.2-1.0 <content [facility] [Units/volume] styleCode="Will Wilson in Urine by d">Urine Medical Test strip Urobilinogen Center </content>0.2 MG/DL<content styleCode="Kaur lics"> (0.2-1.0 MG/DL)</conten t> Specific 1.015-1.02 Below low normal <content [facility] gravity of 5 styleCode="Will Wilson Urine by Test d">Urine Medical strip Specific Center Mobile </content>1.01 0 L<content styleCode="Kaur lics"> (1.015-1.025 )</content> Protein NEGATIVE <content [facility] [Mass/volume] styleCode="Will Wilson in Urine by d">Urine Medical Test strip Protein Center </content>NEGA TIVE MG/DL<content styleCode="Kaur lics"> (NEGATIVE MG/DL)</conten t> Leukocyte NEGATIVE <content [facility] esterase styleCode="Will Wilson [Presence] in d">Urine Medical Urine by Test Leukocyte Center strip </content>TRAC E <content styleCode="Kaur lics"> (NEGATIVE )</content> Nitrite NEGATIVE <content Saint [Presence] in styleCode="Will Rachel Urine by Test d">Urine Medical strip Nitrite Center </content>NEGA TIVE <content styleCode="Kaur lics"> (NEGATIVE )</content> UNK NEGATIVE <content Saint styleCode="Will Rachel d">Urine Medical Bacteria Center </content>FEW HPF<content styleCode="Kaur lics"> (NEGATIVE HPF)</content> UNK 0-3 <content Saint styleCode="Will Rachel d">Urine Red Medical Blood Cell Center </content>0-3 HPF<content styleCode="Kaur lics"> (0-3 HPF)</content> UNK 0-3 <content Saint styleCode="Will Rachel d">Urine White Medical Blood Cell Center </content>0-3 HPF<content styleCode="Kaur lics"> (0-3 HPF)</content> ID Date Data Source Liver 03/09/2019 12:30:00 AM EDT [facility] Profile.[id number] Name Value Range Interpretation Description Data Sup porting Code Source(s) Document(s ) UNK 0.0-0.3 <content [facility] styleCode="Bold"> [place] Bilirubin, Direct Medical </content>< 0.2 Center MG/DL<content styleCode="Italic s"> (0.0-0.3 MG/DL)</content> Alkaline 38-126 <content phosphatase styleCode="Bold"> [facility] [Enzymatic Alkaline Medical activity/volume] Phosphatase (ALP) Cente r in Serum or Plasma </content>64 IU/L<content styleCode="Italic s"> (38-126 IU/L)</content> Aspartate 17-59 Above high <content [facility] aminotransferase normal styleCode="Bold"> [facility] [Enzymatic Aspartate Medical activity/volume] Aminotransferase Center in Serum or Plasma (AST) </content>63 IU/L H<content styleCode="Italic s"> (17-59 IU/L)</content> Albumin 3.5-5.0 <content [facility] [Mass/volume] in styleCode="Bold"> [facility] hs Serum or Plasma Albumin Medical </content>4.0 Center G/DL<content styleCode="Italic s"> (3.5-5.0 G/DL)</content> Alanine 7-50 Above high <content [facility] aminotransferase normal styleCode="Bold"> [facility] [Enzymatic Alanine Medical activity/volume] Aminotransferase Center in Serum or Plasma (ALT) </content>69 IU/L H<content styleCode="Italic s"> (7-50 IU/L)</content> Bilirubin.total 0.2-1.3 <content [facility] [Mass/volume] in styleCode="Bold"> [facility] Serum or Plasma Bilirubin Total Medical </content>0.3 Center MG/DL<content styleCode="Italic s"> (0.2-1.3 MG/DL)</content> ID Date Data Source HematologyRou.[id number] 03/09/2019 12:30:00 AM [facility] Name Value Range Interpretation Description Data Sup porting Code Source(s) Document(s ) Leukocytes 4.4-11.0 <content [facility] [#/volume] in styleCode="Bold [facility] Blood by ">White Blood Medical Automated count Cell Count Center </content>5.62 KCUMM<content styleCode="Ital ics"> (4.4-11.0 KCUMM)</content > Hematocrit 41.0-53. Below low normal <content Saint [Volume 0 styleCode="Bold Wilson Fraction] of ">Hematocrit Medical Blood by </content>37.7 Center Automated count % L<content styleCode="Ital ics"> (41.0-53.0 %)</content> Erythrocyte mean 32.0-37. <content [facility] corpuscular 0 styleCode="Bold [facility] hemoglobin ">Mean Corpus. Medical concentration Hgb Center [Mass/volume] by Concentration Automated count (MCHC) </content>34.0 G/DL<content styleCode="Ital ics"> (32.0-37.0 G/DL)</content> Hemoglobin 13.5-17. Below low normal <content [facility] [Mass/volume] in 5 styleCode="Bold Wilson Blood ">Hemoglobin Medical </content>12.8 Center G/DL L<content styleCode="Ital ics"> (13.5-17.5 G/DL)</content> Erythrocytes 4.4-5.9 Below low normal <content Saint [#/volume] in styleCode="Bold [facility] Blood by ">Red Blood Medical Automated count Cell Count Center </content>4.18 MCUMM L<content styleCode="Ital ics"> (4.4-5.9 MCUMM)</content > Erythrocyte mean 26.0-34. <content [facility] corpuscular 0 styleCode="Bold Wilson hemoglobin ">Mean Medical [Entitic mass] Corposcular Center by Automated Hemoglobin count </content>30.6 PG<content styleCode="Ital ics"> (26.0-34.0 PG)</content> Erythrocyte mean 80.0-100 <content [facility] corpuscular .0 styleCode="Bold Wilson volume [Entitic ">Mean Medical volume] by Corpuscular Center Automated count Volume </content>90.2 FL<content styleCode="Ital ics"> (80.0-100.0 FL)</content> UNK 0 <content Saint styleCode="Bold Wilson ">Nucleated Red Medical Blood Cell Center </content>0.0 /100<content styleCode="Ital ics"> (0 /100)</content> Erythrocyte 11.5-14. <content [facility] distribution 5 styleCode="Bold Wilson width [Ratio] by ">Red Cell Medical Automated count Distribution Center Width </content>12.5 %<content styleCode="Ital ics"> (11.5-14.5 %)</content> Platelet mean 8.0-11.0 <content [facility] volume [Entitic styleCode="Bold Wilson volume] in Blood ">Mean Platelet Medical by Automated Volume Center count </content>8.9 FL<content styleCode="Ital ics"> (8.0-11.0 FL)</content> Platelets 130-400 <content Saint [#/volume] in styleCode="Bold [facility] Blood by ">Platelet Medical Automated count Count Center </content>254 KCUMM<content styleCode="Ital ics"> (130-400 KCUMM)</content > UNK 0.0 <content Saint styleCode="Bold Wilson ">Nucleated Red Medical Blood Cell Center Count </content>0.00 KCUMM<content styleCode="Ital ics"> (0.0 KCUMM)</content > ID Date Data Source GFR(Creatinine).[id number] 03/09/2019 12:30:[address] [facility] 0-0400 Name Value Range Interpretation Code Description Data Marley rce(s) Supporting Document(s ) UNK > 60 <content [facility] styleCode="Bold"> Medical Cent er EGFR </content>114 GFR<content styleCode="Italic s"> (> 60 GFR)</content> ID Date Data Source MROUTINECCDA.[id number] 03/09/2019 12:30:[address] [facility] -0400 Name Value Range Interpretation Description Data Sup porting Code Source(s) Document(s ) Lipase 23-300 <content [facility] [Enzymatic styleCode="Bold Medical activity/vo ">Lipase Center lume] in </content>176 Serum or IU/L<content Plasma styleCode="Ital ics"> (23-300 IU/L)</content> ID Date Data Source [facility].[id number] 03/09/2019 12:30:00 AM EDT [facility] Name Value Range Interpretation Description Data Sup porting Code Source(s) Document(s ) Sodium 137-145 <content [facility] [Moles/volume] in styleCode="Bold"> [facility] [facility]s Serum or Plasma Sodium Medical </content>140 Center MEQ/L<content styleCode="Italic s"> (137-145 MEQ/L)</content> Potassium 3.5-5.3 <content [facility] [Moles/volume] in styleCode="Bold"> [place] phs Serum or Plasma Potassium Medical </content>4.0 Center MEQ/L<content styleCode="Italic s"> (3.5-5.3 MEQ/L)</content> Chloride 98-107 <content [facility] [Moles/volume] in styleCode="Bold"> [place] phs Serum or Plasma Chloride Medical </content>105 Center MEQ/L<content styleCode="Italic s"> (98-107 MEQ/L)</content> UNK 9-20 <content [facility] styleCode="Bold"> [facility] BUN </content>14 Medical MG/DL<content Center styleCode="Italic s"> (9-20 MG/DL)</content> Carbon dioxide, 22-30 <content [facility] total styleCode="Bold"> [facility] [Moles/volume] in Carbon Dioxide Medical Serum or Plasma </content>29 Center MEQ/L<content styleCode="Italic s"> (22-30 MEQ/L)</content> Glucose 74-106 <content [facility] [Mass/volume] in styleCode="Bold"> [facility] hs Serum or Plasma Glucose Medical </content>90 Center MG/DL<content styleCode="Italic s"> (74-106 MG/DL)</content> Calcium 8.4-10. <content [facility] [Mass/volume] in 2 styleCode="Bold"> [facility] Serum or Plasma Calcium Medical </content>9.2 Center MG/DL<content styleCode="Italic s"> (8.4-10.2 MG/DL)</content> Creatinine 0.5-1.3 <content [facility] [Mass/volume] in styleCode="Bold"> [facility] hs Serum or Plasma Creatinine Medical </content>0.8 Center MG/DL<content styleCode="Italic s"> (0.5-1.3 MG/DL)</content> UNK > 60 <content [facility] styleCode="Bold"> [facility] EGFR Medical </content>114 Center GFR<content styleCode="Italic s"> (> 60 GFR)</content> Albumin 3.5-5.0 <content [facility] [Mass/volume] in styleCode="Bold"> [facility] hs Serum or Plasma Albumin Medical </content>4.0 Center G/DL<content styleCode="Italic s"> (3.5-5.0 G/DL)</content> Bilirubin.total 0.2-1.3 <content [facility] [Mass/volume] in styleCode="Bold"> [facility] hs Serum or Plasma Bilirubin Total Medical </content>0.3 Center MG/DL<content styleCode="Italic s"> (0.2-1.3 MG/DL)</content> Alkaline 38-126 <content [facility] phosphatase styleCode="Bold"> [facility] [Enzymatic Alkaline Medical activity/volume] Phosphatase (ALP) Cente r in Serum or Plasma </content>64 IU/L<content styleCode="Italic s"> (38-126 IU/L)</content> Alanine 7-50 Above high <content [facility] aminotransferase normal styleCode="Bold"> [facility] [Enzymatic Alanine Medical activity/volume] Aminotransferase Center in Serum or Plasma (ALT) </content>69 IU/L H<content styleCode="Italic s"> (7-50 IU/L)</content> Aspartate 17-59 Above high <content [facility] aminotransferase normal styleCode="Bold"> [facility] [Enzymatic Aspartate Medical activity/volume] Aminotransferase Center in Serum or Plasma (AST) </content>63 IU/L H<content styleCode="Italic s"> (17-59 IU/L)</content> ID Date Data Source GFR(Creatinine).[id number] 02/14/2019 11:40:[address] [facility] 0-0400 Name Value Range Interpretation Code Description Data Marley rce(s) Supporting Document(s ) UNK > 60 <content [facility] styleCode="Bold"> Medical Cent er EGFR </content>133 GFR<content styleCode="Italic s"> (> 60 GFR)</content> ID Date Data Source CardiacMarkers.[id number] 02/14/2019 11:40:[address] [facility] -0400 Name Value Range Interpretation Description Data Sup porting Code Source(s) Document(s ) Troponin < 0.034 <content Saint I.cardiac styleCode="Bold Wilson [Mass/volume ">Troponin I Medical ] in Serum </content>< Center or Plasma 0.012 NG/ML<content styleCode="Ital ics"> (< 0.034 NG/ML)</content > ID Date Data Source [facility].[id number] 02/14/2019 11:40:00 PM EDT [facility] Name Value Range Interpretation Description Data Sup porting Code Source(s) Document(s ) Potassium 3.5-5.3 <content [facility] [Moles/volume] styleCode="Will Wilson in Serum or d">Potassium Medical Plasma </content>3.7 Center MEQ/L<content styleCode="Kaur lics"> (3.5-5.3 MEQ/L)</conten t> Sodium 137-145 <content Saint [Moles/volume] styleCode="Will Wilson in Serum or d">Sodium Medical Plasma </content>141 Center MEQ/L<content styleCode="Kaur lics"> (137-145 MEQ/L)</conten t> Creatinine 0.5-1.3 <content Saint [Mass/volume] styleCode="Will Wilson in Serum or d">Creatinine Medical Plasma </content>0.7 Center MG/DL<content styleCode="Kaur lics"> (0.5-1.3 MG/DL)</conten t> UNK 9-20 <content Saint styleCode="Will Wilson d">BUN Medical </content>11 Center MG/DL<content styleCode="Kaur lics"> (9-20 MG/DL)</conten t> Carbon 22-30 <content Saint dioxide, total styleCode="Will Wilson [Moles/volume] d">Carbon Medical in Serum or Dioxide Center Plasma </content>28 MEQ/L<content styleCode="Kaur lics"> (22-30 MEQ/L)</conten t> Chloride 98-107 <content Saint [Moles/volume] styleCode="Will Wilson in Serum or d">Chloride Medical Plasma </content>103 Center MEQ/L<content styleCode="Kaur lics"> (98-107 MEQ/L)</conten t> UNK > 60 <content Saint styleCode="Will Anands d">EGFR Medical </content>133 Center GFR<content styleCode="Kaur lics"> (> 60 GFR)</content> Calcium 8.4-10.2 <content Saint [Mass/volume] styleCode="Will Anands in Serum or d">Calcium Medical Plasma </content>8.7 Center MG/DL<content styleCode="Kaur lics"> (8.4-10.2 MG/DL)</conten t> Glucose 74-106 <content Saint [Mass/volume] styleCode="Will Anands in Serum or d">Glucose Medical Plasma </content>99 Center MG/DL<content styleCode="Kaur lics"> (74-106 MG/DL)</conten t> ID Date Data Source Urinalysis.[id number] 02/14/2019 11:02:[address] [facility] 0 Name Value Range Interpretation Description Data Sup porting Code Source(s) Document(s ) Color of Urine YELLOW <content [facility] styleCode="Will Anands d">Color, Medical Urine Center </content>YELL OW <content styleCode="Kaur lics"> (YELLOW )</content> UNK NEGATIVE <content [facility] styleCode="Will Anands d">Urine Medical Bilirubin Center </content>SMAL L <content styleCode="Kaur lics"> (NEGATIVE )</content> UNK CLEAR <content Saint styleCode="Will Anands d">Urine Medical Clarity Center </content>NELIA R <content styleCode="Kaur lics"> (CLEAR )</content> Glucose NEGATIVE <content Saint [Mass/volume] styleCode="Will Rachel in Urine by d">Urine Medical Test strip Glucose Center </content>NEGA TIVE MG/DL<content styleCode="Kaur lics"> (NEGATIVE MG/DL)</conten t> Specific 1.015-1.02 Above high <content [facility] gravity of 5 normal styleCode="Will Rachel Urine by Test d">Urine Medical strip Specific Center Mobile </content>>= 1.030 H<content styleCode="Kaur lics"> (1.015-1.025 )</content> Ketones NEGATIVE <content [facility] [Mass/volume] styleCode="Will Anands in Urine by d">Urine Medical Test strip Ketone Center </content>15 MG/DL<content styleCode="Kaur lics"> (NEGATIVE MG/DL)</conten t> Hemoglobin NEGATIVE <content Saint [Presence] in styleCode="Will Anands Urine by Test d">Urine Blood Medical strip </content>NEGA Center TIVE <content styleCode="Kaur lics"> (NEGATIVE )</content> Protein NEGATIVE <content Saint [Mass/volume] styleCode="Will Wilson in Urine by d">Urine Medical Test strip Protein Center </content>30 MG/DL<content styleCode="Kaur lics"> (NEGATIVE MG/DL)</conten t> pH of Urine by 4.5-8.0 <content Saint Test strip styleCode="Will Wilson d">Urine pH Medical </content>6.0 Center <content styleCode="Kaur lics"> (4.5-8.0 )</content> Leukocyte NEGATIVE <content [facility] esterase styleCode="Will Anands [Presence] in d">Urine Medical Urine by Test Leukocyte Center strip </content>NEGA TIVE <content styleCode="Kaur lics"> (NEGATIVE )</content> Nitrite NEGATIVE <content Saint [Presence] in styleCode="Will Anands Urine by Test d">Urine Medical strip Nitrite Center </content>NEGA TIVE <content styleCode="Kaur lics"> (NEGATIVE )</content> Urobilinogen 0.2-1.0 <content [facility] [Units/volume] styleCode="Will Wilson in Urine by d">Urine Medical Test strip Urobilinogen Center </content>0.2 MG/DL<content styleCode="Kaur lics"> (0.2-1.0 MG/DL)</conten t> UNK <content Saint styleCode="Will Wilson d">Epithelial Medical Cell Center </content>5 - 10 LPF (Reference Range: not available)<br/ > ID Date Data Source LIPID.[id number] 02/14/2019 08:40:00 PM EDT [facility] Name Value Range Interpretation Description Data Sup porting Code Source(s) Document(s ) Triglyceride < 150 <content Saint [Mass/volume] in styleCode="[facility] Serum or Plasma d">Triglycerid Medical es Center </content>99 MG/DL<content styleCode="Kaur lics"> (< 150 MG/DL)</conten t> Cholesterol -<200 <content [facility] [Mass/volume] in styleCode="[facility] Serum or Plasma d">Cholesterol Medical </content>181 Center MG/DL<content styleCode="Kaur lics"> (-<200 MG/DL)</conten t> UNK < 100 Above high normal <content Saint styleCode="Will Wilson d">LDL-Cholest Medical mel Center </content>129 MG/DL H<content styleCode="Kaur lics"> (< 100 MG/DL)</conten t> UNK > 60 Below low normal <content Saint styleCode="Will Wilson d">HDL- Medical Cholesterol Center </content>32 MG/DL L<content styleCode="Kaur lics"> (> 60 MG/DL)</conten t> ID Date Data Source HematologyRou.[id number] 02/14/2019 08:40:00 PM [facility] Name Value Range Interpretation Description Data Sup porting Code Source(s) Document(s ) Hemoglobin 13.5-17. <content [facility] [Mass/volume] in 5 styleCode="Bold Wilson Blood ">Hemoglobin Medical </content>14.7 Center G/DL<content styleCode="Ital ics"> (13.5-17.5 G/DL)</content> Erythrocytes 4.4-5.9 <content Saint [#/volume] in styleCode="Bold Wilson Blood by ">Red Blood Medical Automated count Cell Count Center </content>4.81 MCUMM<content styleCode="Ital ics"> (4.4-5.9 MCUMM)</content > Leukocytes 4.4-11.0 <content [facility] [#/volume] in styleCode="Bold Wilson Blood by ">White Blood Medical Automated count Cell Count Center </content>5.14 KCUMM<content styleCode="Ital ics"> (4.4-11.0 KCUMM)</content > Hematocrit 41.0-53. <content [facility] [Volume 0 styleCode="Bold Wilson Fraction] of ">Hematocrit Medical Blood by </content>42.0 Center Automated count %<content styleCode="Ital ics"> (41.0-53.0 %)</content> Erythrocyte mean 80.0-100 <content [facility] corpuscular .0 styleCode="Bold Wilson volume [Entitic ">Mean Medical volume] by Corpuscular Center Automated count Volume </content>87.3 FL<content styleCode="Ital ics"> (80.0-100.0 FL)</content> Erythrocyte 11.5-14. <content [facility] distribution 5 styleCode="Bold Wilson width [Ratio] by ">Red Cell Medical Automated count Distribution Center Width </content>12.6 %<content styleCode="Ital ics"> (11.5-14.5 %)</content> Erythrocyte mean 32.0-37. <content [facility] corpuscular 0 styleCode="Bold Wilson hemoglobin ">Mean Corpus. Medical concentration Hgb Center [Mass/volume] by Concentration Automated count (MCHC) </content>35.0 G/DL<content styleCode="Ital ics"> (32.0-37.0 G/DL)</content> Erythrocyte mean 26.0-34. <content [facility] corpuscular 0 styleCode="Bold Wilson hemoglobin ">Mean Medical [Entitic mass] Corposcular Center by Automated Hemoglobin count </content>30.6 PG<content styleCode="Ital ics"> (26.0-34.0 PG)</content> Platelets 130-400 <content Saint [#/volume] in styleCode="Bold Wilson Blood by ">Platelet Medical Automated count Count Center </content>308 KCUMM<content styleCode="Ital ics"> (130-400 KCUMM)</content > Platelet mean 8.0-11.0 <content Saint volume [Entitic styleCode="Bold Wilson volume] in Blood ">Mean Platelet Medical by Automated Volume Center count </content>9.4 FL<content styleCode="Ital ics"> (8.0-11.0 FL)</content> UNK 0 <content Saint styleCode="Bold Wilson ">Nucleated Red Medical Blood Cell Center </content>0.0 /100<content styleCode="Ital ics"> (0 /100)</content> UNK 0.0 <content Saint styleCode="Bold Wilson ">Nucleated Red Medical Blood Cell Center Count </content>0.00 KCUMM<content styleCode="Ital ics"> (0.0 KCUMM)</content > ID Date Data Source GFR(Creatinine).[id number] 02/14/2019 08:40:[address] [facility] 0-0400 Name Value Range Interpretation Code Description Data Marley rce(s) Supporting Document(s ) UNK > 60 <content [facility] styleCode="Bold"> Medical Cent er EGFR </content>114 GFR<content styleCode="Italic s"> (> 60 GFR)</content> ID Date Data Source Coagulation 02/14/2019 08:40:00 PM [facility] Rout.[id number] EDT Name Value Range Interpretation Description Data Sup porting Code Source(s) Document(s ) UNK 9.0-13.0 Above high normal <content Saint styleCode="Bold" Wilson >Protime Medical </content>13.6 Center SEC H<content styleCode="Itali cs"> (9.0-13.0 SEC)</content> INR in 0.80-1.2 Above high normal <content [facility] Platelet poor 0 styleCode="Bold" Wilson plasma by >INR Medical Coagulation </content>1.23 # Center assay H<content styleCode="Itali cs"> (0.80-1.20 #)</content> aPTT in 25.1-36. <content [facility] Platelet poor 5 styleCode="Bold" Wilson plasma by >Partial [facility] assay Time </content>27.9 SEC<content styleCode="Itali cs"> (25.1-36.5 SEC)</content> ID Date Data Source CardiacMarkers.[id number] 02/14/2019 08:40:[address] [facility] -0400 Name Value Range Interpretation Description Data Sup porting Code Source(s) Document(s ) Troponin < 0.034 <content [facility] I.cardiac styleCode="Bold Wilson [Mass/volume ">Troponin I Medical ] in Serum </content>< Center or Plasma 0.012 NG/ML<content styleCode="Ital ics"> (< 0.034 NG/ML)</content > ID Date Data Source BMP.[id number] 02/14/2019 08:40:00 PM EDT [facility] Name Value Range Interpretation Description Data Sup porting Code Source(s) Document(s ) Sodium 137-145 <content Saint [Moles/volume] styleCode="Will Wilson in Serum or d">Sodium Medical Plasma </content>143 Center MEQ/L<content styleCode="Kaur lics"> (137-145 MEQ/L)</conten t> Potassium 3.5-5.3 <content [facility] [Moles/volume] styleCode="Will Wilson in Serum or d">Potassium Medical Plasma </content>3.8 Center MEQ/L<content styleCode="Kaur lics"> (3.5-5.3 MEQ/L)</conten t> Chloride 98-107 <content [facility] [Moles/volume] styleCode="Will Wilson in Serum or d">Chloride Medical Plasma </content>101 Center MEQ/L<content styleCode="Kaur lics"> (98-107 MEQ/L)</conten t> Carbon 22-30 <content Saint dioxide, total styleCode="Will Wilson [Moles/volume] d">Carbon Medical in Serum or Dioxide Center Plasma </content>29 MEQ/L<content styleCode="Kaur lics"> (22-30 MEQ/L)</conten t> UNK 9-20 <content Saint styleCode="Will Anands d">BUN Medical </content>13 Center MG/DL<content styleCode="Kaur lics"> (9-20 MG/DL)</conten t> Creatinine 0.5-1.3 <content [facility] [Mass/volume] styleCode="Will Anands in Serum or d">Creatinine Medical Plasma </content>0.8 Center MG/DL<content styleCode="Kaur lics"> (0.5-1.3 MG/DL)</conten t> Glucose 74-106 <content Saint [Mass/volume] styleCode="Will Wilson in Serum or d">Glucose Medical Plasma </content>89 Center MG/DL<content styleCode="Kaur lics"> (74-106 MG/DL)</conten t> UNK > 60 <content [facility] styleCode="Will Wilson d">EGFR Medical </content>114 Center GFR<content styleCode="Kaur lics"> (> 60 GFR)</content> Calcium 8.4-10.2 <content [facility] [Mass/volume] styleCode="Will Anands in Serum or d">Calcium Medical Plasma </content>9.3 Center MG/DL<content styleCode="Kaur lics"> (8.4-10.2 MG/DL)</conten t> ID Date Data Source Liver 02/10/2019 02:25:00 AM EDT [facility] Profile.[id number] Name Value Range Interpretation Description Data Sup porting Code Source(s) Document(s ) Bilirubin.total 0.2-1.3 <content [facility] [Mass/volume] in styleCode="Bold"> Cyrus hs Serum or Plasma Bilirubin Total Medical </content>0.4 Center MG/DL<content styleCode="Italic s"> (0.2-1.3 MG/DL)</content> Aspartate 17-59 <content Saint aminotransferase styleCode="Bold"> Cyrus hs [Enzymatic Aspartate Medical activity/volume] Aminotransferase Center in Serum or Plasma (AST) </content>45 IU/L<content styleCode="Italic s"> (17-59 IU/L)</content> Alanine 7-50 <content [facility] aminotransferase styleCode="Bold"> Cyrus hs [Enzymatic Alanine Medical activity/volume] Aminotransferase Center in Serum or Plasma (ALT) </content>38 IU/L<content styleCode="Italic s"> (7-50 IU/L)</content> Albumin 3.5-5.0 <content Saint [Mass/volume] in styleCode="Bold"> Cyrus hs Serum or Plasma Albumin Medical </content>4.5 Center G/DL<content styleCode="Italic s"> (3.5-5.0 G/DL)</content> Alkaline 38-126 <content [facility] phosphatase styleCode="Bold"> Wilson [Enzymatic Alkaline Medical activity/volume] Phosphatase (ALP) Cente r in Serum or Plasma </content>62 IU/L<content styleCode="Italic s"> (38-126 IU/L)</content> ID Date Data Source HematologyRou.[id number] 02/10/2019 02:25:00 AM EDT [facility] 0400 Name Value Range Interpretation Description Data Sup porting Code Source(s) Document(s ) Erythrocytes 4.4-5.9 <content Saint [#/volume] in styleCode="Bold Wilson Blood by ">Red Blood Medical Automated count Cell Count Center </content>4.69 MCUMM<content styleCode="Ital ics"> (4.4-5.9 MCUMM)</content > Leukocytes 4.4-11.0 <content Saint [#/volume] in styleCode="Bold Wilson Blood by ">White Blood Medical Automated count Cell Count Center </content>6.03 KCUMM<content styleCode="Ital ics"> (4.4-11.0 KCUMM)</content > Hemoglobin 13.5-17. <content Saint [Mass/volume] in 5 styleCode="Bold Wilson Blood ">Hemoglobin Medical </content>14.4 Center G/DL<content styleCode="Ital ics"> (13.5-17.5 G/DL)</content> Erythrocyte mean 80.0-100 <content [facility] corpuscular .0 styleCode="Bold Wilson volume [Entitic ">Mean Medical volume] by Corpuscular Center Automated count Volume </content>87.6 FL<content styleCode="Ital ics"> (80.0-100.0 FL)</content> Hematocrit 41.0-53. <content Saint [Volume 0 styleCode="Bold Wilson Fraction] of ">Hematocrit Medical Blood by </content>41.1 Center Automated count %<content styleCode="Ital ics"> (41.0-53.0 %)</content> Erythrocyte mean 26.0-34. <content [facility] corpuscular 0 styleCode="Bold Wilson hemoglobin ">Mean Medical [Entitic mass] Corposcular Center by Automated Hemoglobin count </content>30.7 PG<content styleCode="Ital ics"> (26.0-34.0 PG)</content> UNK 0 <content Saint styleCode="Bold Wilson ">Nucleated Red Medical Blood Cell Center </content>0.0 /100<content styleCode="Ital ics"> (0 /100)</content> Platelets 130-400 <content Saint [#/volume] in styleCode="Bold Wilson Blood by ">Platelet Medical Automated count Count Center </content>300 KCUMM<content styleCode="Ital ics"> (130-400 KCUMM)</content > Erythrocyte 11.5-14. <content [facility] distribution 5 styleCode="Bold Wilson width [Ratio] by ">Red Cell Medical Automated count Distribution Center Width </content>12.4 %<content styleCode="Ital ics"> (11.5-14.5 %)</content> Erythrocyte mean 32.0-37. <content [facility] corpuscular 0 styleCode="Bold Wilson hemoglobin ">Mean Corpus. Medical concentration Hgb Center [Mass/volume] by Concentration Automated count (MCHC) </content>35.0 G/DL<content styleCode="Ital ics"> (32.0-37.0 G/DL)</content> Platelet mean 8.0-11.0 <content Saint volume [Entitic styleCode="Bold Wilson volume] in Blood ">Mean Platelet Medical by Automated Volume Center count </content>9.3 FL<content styleCode="Ital ics"> (8.0-11.0 FL)</content> UNK 0.0 <content Saint styleCode="Bold Wilson ">Nucleated Red Medical Blood Cell Center Count </content>0.00 KCUMM<content styleCode="Ital ics"> (0.0 KCUMM)</content > ID Date Data Source GFR(Creatinine).[id number] 02/10/2019 02:25:[address] [facility] 0-0400 Name Value Range Interpretation Code Description Data Marley rce(s) Supporting Document(s ) UNK > 60 <content [facility] Wilson styleCode="Bold"> Medical Cent er EGFR </content>114 GFR<content styleCode="Italic s"> (> 60 GFR)</content> ID Date Data Source CHMROUTINECCDA.[id number] 02/10/2019 02:25:[address] [facility] -0400 Name Value Range Interpretation Description Data Sup porting Code Source(s) Document(s ) UNK NEGATIVE <content Saint styleCode="Bold Wilson ">Acetone Medical </content>NEGAT Center MARY <content styleCode="Ital ics"> (NEGATIVE )</content> UNK 2.3-3.5 Above high normal <content Saint styleCode="Bold Wilson ">Globulin Medical </content>3.8 Center G/DL H<content styleCode="Ital ics"> (2.3-3.5 G/DL)</content> UNK >= 1.0 <content [facility] styleCode="Bold Wilson ">AG Ratio Medical </content>1.2 Center <content styleCode="Ital ics"> (>= 1.0 )</content> Protein 6.3-8.2 Above high normal <content Saint [Mass/volum styleCode="Bold Wilson e] in Serum ">Total Protein Medical or Plasma </content>8.3 Center G/DL H<content styleCode="Ital ics"> (6.3-8.2 G/DL)</content> Lipase 23-300 <content Saint [Enzymatic styleCode="Bold Wilson activity/vo ">Lipase Medical lume] in </content>132 Center Serum or IU/L<content Plasma styleCode="Ital ics"> (23-300 IU/L)</content> ID Date Data Source [facility].[id number] 02/10/2019 02:25:00 AM EDT [facility] Name Value Range Interpretation Description Data Sup porting Code Source(s) Document(s ) Sodium 137-145 <content Saint [Moles/volume] in styleCode="Bold"> Chayo phs Serum or Plasma Sodium Medical </content>142 Center MEQ/L<content styleCode="Italic s"> (137-145 MEQ/L)</content> Carbon dioxide, 22-30 <content Saint total styleCode="Bold"> Wilson [Moles/volume] in Carbon Dioxide Medical Serum or Plasma </content>28 Center MEQ/L<content styleCode="Italic s"> (22-30 MEQ/L)</content> Potassium 3.5-5.3 <content Saint [Moles/volume] in styleCode="Bold"> [facility] Serum or Plasma Potassium Medical </content>4.1 Center MEQ/L<content styleCode="Italic s"> (3.5-5.3 MEQ/L)</content> Chloride 98-107 <content Saint [Moles/volume] in styleCode="Bold"> Chayo phs Serum or Plasma Chloride Medical </content>104 Center MEQ/L<content styleCode="Italic s"> (98-107 MEQ/L)</content> Glucose 74-106 <content Saint [Mass/volume] in styleCode="Bold"> Cyrus hs Serum or Plasma Glucose Medical </content>100 Center MG/DL<content styleCode="Italic s"> (74-106 MG/DL)</content> UNK 9-20 <content Saint styleCode="Bold"> Wilson BUN </content>15 Medical MG/DL<content Center styleCode="Italic s"> (9-20 MG/DL)</content> Creatinine 0.5-1.3 <content Saint [Mass/volume] in styleCode="Bold"> Cyrus hs Serum or Plasma Creatinine Medical </content>0.8 Center MG/DL<content styleCode="Italic s"> (0.5-1.3 MG/DL)</content> Alanine 7-50 <content [facility] aminotransferase styleCode="Bold"> Cyrus hs [Enzymatic Alanine Medical activity/volume] Aminotransferase Center in Serum or Plasma (ALT) </content>38 IU/L<content styleCode="Italic s"> (7-50 IU/L)</content> Calcium 8.4-10. <content [facility] [Mass/volume] in 2 styleCode="Bold"> Cyrus hs Serum or Plasma Calcium Medical </content>9.7 Center MG/DL<content styleCode="Italic s"> (8.4-10.2 MG/DL)</content> Alkaline 38-126 <content [facility] phosphatase styleCode="Bold"> Wilson [Enzymatic Alkaline Medical activity/volume] Phosphatase (ALP) Cente r in Serum or Plasma </content>62 IU/L<content styleCode="Italic s"> (38-126 IU/L)</content> UNK > 60 <content Saint styleCode="Bold"> Wilson EGFR Medical </content>114 Center GFR<content styleCode="Italic s"> (> 60 GFR)</content> Aspartate 17-59 <content [facility] aminotransferase styleCode="Bold"> Cyrus hs [Enzymatic Aspartate Medical activity/volume] Aminotransferase Center in Serum or Plasma (AST) </content>45 IU/L<content styleCode="Italic s"> (17-59 IU/L)</content> Bilirubin.total 0.2-1.3 <content [facility] [Mass/volume] in styleCode="Bold"> Cyrus hs Serum or Plasma Bilirubin Total Medical </content>0.4 Center MG/DL<content styleCode="Italic s"> (0.2-1.3 MG/DL)</content> Albumin 3.5-5.0 <content [facility] [Mass/volume] in styleCode="Bold"> Cyrus hs Serum or Plasma Albumin Medical </content>4.5 Center G/DL<content styleCode="Italic s"> (3.5-5.0 G/DL)</content> Procedure Social History Code Duration Value Status Description Data Source(s ) Smoking 03/24/2019 Current completed Current Smoker eCW3 ([facility] 12:00:00 AM EDT Smoker [facility]) Smoking 03/24/2019 Current completed Current Smoker eCW3 ([facility] 12:00:00 AM EDT Smoker [facility]) Caffeine Use 03/22/2019 completed NEXTGEN ([facility]ter nt Details 12:00:00 AM EDT [facility]) Smoking 03/22/2019 Unknown if completed Unknown if ever NEXTGEN ( [facility] 12:00:00 AM EDT ever smoked smoked [facility]) Smoking 03/09/2019 Daily Smoker completed Daily Smoker [facility] 12:28:00 AM EDT Medical C enter Smoking 03/08/2019 Daily Smoker completed Daily Smoker [facility] 11:11:00 PM EDT Medical C enter Smoking 02/22/2019 Daily Smoker completed Daily Smoker [facility] 06:00:00 AM EDT Medical C enter Smoking 02/22/2019 Daily Smoker completed Daily Smoker [facility] 05:47:00 AM EDT Medical C enter Smoking 02/17/2019 Daily Smoker completed Daily Smoker [facility] 01:11:00 AM EDT Medical C enter Smoking 02/17/2019 Daily Smoker completed Daily Smoker [facility] 12:50:00 AM EDT Medical C enter Smoking 02/17/2019 Daily Smoker completed Daily Smoker [facility] 12:26:00 AM EDT Medical C enter Smoking 02/15/2019 Daily Smoker completed Daily Smoker [facility] 11:50:00 AM EDT Medical C enter Smoking 02/15/2019 Former Smoker completed Former Smoker [facility] 04:04:00 AM EDT Medical C enter Smoking 02/15/2019 Daily Smoker completed Daily Smoker [facility] 12:06:00 AM EDT Medical C enter Smoking 02/14/2019 Daily Smoker completed Daily Smoker [facility] 09:01:00 PM EDT Medical C enter Smoking 02/14/2019 Daily Smoker completed Daily Smoker [facility] 08:00:00 PM EDT Medical C enter Smoking 02/10/2019 Daily Smoker completed Daily Smoker [facility] 02:05:00 AM EDT Medical C enter Smoking 02/10/2019 Daily Smoker completed Daily Smoker [facility] 01:43:00 AM EDT Medical C enter Smoking Unknown if completed Unknown if ever [facility] [place] [facility] ever smoked smoked Medical Porter r Current completed Current Smoker eCW3 ([facility] on Smoker [facility]) Current completed Current Smoker eCW3 ([facility] on Smoker [facility]) Alcohol Use completed NEXTGEN ([facility]) Smoking Unknown if completed Unknown if ever eCW2 ([facility] ever smoked smoked [facility]) Vital Signs ID Date Data Source UNK Name Value Range Interpretation Code Description Data Source(s) Diastolic blood 70 mm[Hg] 70 mm[Hg] eCW3 ([facility]) Systolic blood 119 mm[Hg] 119 mm[Hg] eCW3 ([facility]) Body temperature 98.0 [degF] 98.0 [degF] eCW3 ( [facility]) Body mass index 32.91 kg/m2 32.91 kg/m2 eCW3 ([facility] (BMI) [Ratio] [facility]) Body weight 243 [lb_av] 243 [lb_av] eCW3 ([facility]) Body height 72.05 [in_i] 72.05 [in_i] eCW3 ([facility]) Body mass index 32.77 kg/m2 32.77 kg/m2 eCW3 ([facility] (BMI) [Ratio] [facility]) Body weight 242 [lb_av] 242 [lb_av] eCW3 ([facility]) Body height 72.05 [in_i] 72.05 [in_i] eCW3 ([facility]) Diastolic blood 60 mm[Hg] 60 mm[Hg] eCW3 ([facility]) Systolic blood 95 mm[Hg] 95 mm[Hg] eCW3 ([facility]) Body temperature 98.4 [degF] 98.4 [degF] eCW3 ( [facility]) Body temperature 36.315395 36.330280 E[facility] Respiratory rate 16 /min 16 /min [facility] Oxygen saturation 98 % 98 % [facility] in Arterial blood Medical Center by Pulse oximetry Heart rate 64 /min 64 /min [facility] Diastolic blood 67 mm[Hg] 67 mm[Hg] [facility] [place] Systolic blood 120 mm[Hg] 120 mm[Hg] [facility] Body temperature 36.038857 36.105760 Ethel [facility] Respiratory rate 18 /min 18 /min [facility] Heart rate 72 /min 72 /min [facility] Diastolic blood 74 mm[Hg] 74 mm[Hg] [facility] [place] Systolic blood 136 mm[Hg] 136 mm[Hg] [facility] Body temperature 36.828253 36.365092 [facility] Respiratory rate 18 /min 18 /min [facility] Oxygen saturation 98 % 98 % [facility] in Arterial blood Medical Center by Pulse oximetry Heart rate 86 /min 86 /min [facility] Diastolic blood 82 mm[Hg] 82 mm[Hg] [facility] Systolic blood 134 mm[Hg] 134 mm[Hg] [facility] Body temperature 36.385533 36.527213 [facility] Respiratory rate 16 /min 16 /min [facility] Oxygen saturation 97 % 97 % [facility] in Arterial blood [facility] Center by Pulse oximetry Heart rate 84 /min 84 /min [facility] Diastolic blood 79 mm[Hg] 79 mm[Hg] [facility] Systolic blood 140 mm[Hg] 140 mm[Hg] [facility] Body temperature 36.673917 36.592906 [facility] Respiratory rate 17 /min 17 /min [facility] Oxygen saturation 100 % 100 % [facility] in Arterial blood [facility] by Pulse oximetry Heart rate 89 /min 89 /min [facility] Diastolic blood 86 mm[Hg] 86 mm[Hg] [facility] Systolic blood 160 mm[Hg] 160 mm[Hg] [facility] Body temperature 36.561276 36.756766 [facility] Respiratory rate 20 /min 20 /min [facility] Heart rate 62 /min 62 /min [facility] Diastolic blood 70 mm[Hg] 70 mm[Hg] [facility] Systolic blood 126 mm[Hg] 126 mm[Hg] [facility] Body weight 112.152864 112.157664 kg [facility] Measured kg Medical Center Body temperature 36.109924 36.811174 [facility] Respiratory rate 18 /min 18 /min [facility] Heart rate 66 /min 66 /min [facility] Body height 185.975077 185.337110 cm [facility] Diastolic blood 75 mm[Hg] 75 mm[Hg] [facility] Systolic blood 129 mm[Hg] 129 mm[Hg] [facility] Body mass index 32.63 kg/m2 32.63 kg/m2 [facility] (BMI) [Ratio] Medical [facility] ter Body temperature 36.724399 36.138176 [facility] Respiratory rate 16 /min 16 /min [facility] Oxygen saturation 97 % 97 % [facility] in Arterial blood [facility] by Pulse oximetry Heart rate 68 /min 68 /min [facility] Diastolic blood 83 mm[Hg] 83 mm[Hg] [facility] Systolic blood 157 mm[Hg] 157 mm[Hg] [facility] Body temperature 35.822791 35.450150 [facility] Respiratory rate 18 /min 18 /min [facility] Oxygen saturation 99 % 99 % [facility] in Arterial blood [facility] by Pulse oximetry Heart rate 67 /min 67 /min [facility] Diastolic blood 58 mm[Hg] 58 mm[Hg] [facility] Systolic blood 124 mm[Hg] 124 mm[Hg] [facility] Body temperature 37.707611 37.650877 [facility] Respiratory rate 16 /min 16 /min [facility] Oxygen saturation 97 % 97 % [facility] in Arterial blood [facility] by Pulse oximetry Heart rate 77 /min 77 /min [facility] Diastolic blood 75 mm[Hg] 75 mm[Hg] [facility] Systolic blood 144 mm[Hg] 144 mm[Hg] [facility] Body temperature 36.160240 36.306467 [facility] Respiratory rate 16 /min 16 /min [facility] Oxygen saturation 98 % 98 % [facility] J osephs in Arterial blood Medical Center by Pulse oximetry Heart rate 78 /min 78 /min [facility] Diastolic blood 80 mm[Hg] 80 mm[Hg] [facility] Systolic blood 145 mm[Hg] 145 mm[Hg] [facility] Body temperature 36.371014 36.582356 [facility] Respiratory rate 16 /min 16 /min [facility] Oxygen saturation 100 % 100 % [facility] in Arterial blood Medical Center by Pulse oximetry Heart rate 68 /min 68 /min [facility] Diastolic blood 96 mm[Hg] 96 mm[Hg] [facility] Systolic blood 143 mm[Hg] 143 mm[Hg] [facility] Body temperature 36.500529 36.630953 [facility] Respiratory rate 16 /min 16 /min [facility] Oxygen saturation 100 % 100 % [facility] in Arterial blood [facility] Center by Pulse oximetry Heart rate 75 /min 75 /min [facility] Diastolic blood 60 mm[Hg] 60 mm[Hg] [facility] Systolic blood 111 mm[Hg] 111 mm[Hg] [facility] Patient Treatment Plan of Care Planned Activity Planned Date Details Description Data Source (s) Omeprazole 0.667 MG/ML Oral [facility] Suspension [Prise[facility] lansoprazole 30 MG Delayed [facility] Diphenhydramine Hydrochloride [facility] 25 MG Oral Tablet [place] Bisacodyl 5 MG Delayed [facility] Release [facility] Omeprazole 20 MG Delayed [facility] Release Oral [facility] [Prilosec] Famotidine 20 MG Oral Tablet [facility] Sucralfate 1000 MG Oral [facility] Tablet [place] Sucralfate 1000 MG Oral [facility] Tablet [place] Famotidine 20 MG Oral Tablet [facility] Sucralfate 1000 MG Oral [facility] Famotidine 20 MG Oral Tablet [facility]
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
[2020-04-14 01:15] LABS: BASO % 0.9 % (0-2.0); EOS % 3.5 % (0-4.5); HEMATOCRIT 39.8 % (35.4-49); HEMOGLOBIN 13.5 GM/dL (11.7-16.9); LYMPH % 53.6 % (8-40); MCH 29.9 pg (25.7-33.7); MEAN CELL VOLUME 87.9 fl (80-96); MEAN PLT VOLUME 7.4 fl (7.5-11.1); MONO % 11.6 % (3.8-10.2); NEUT % 30.4 % (42.8-82.8); PLATELET COUNT 285 K/MM3 (134-434); RBC 4.53 M/mm3 (4.00-5.60); RDW 12.7 % (11.9-15.9); WHITE BLOOD COUNT 7.3 K/mm3 (4.0-10.0)
[2020-04-14 01:34] LABS: ALBUMIN 3.3 g/dl (3.4-5.0); BILIRUBIN,TOTAL 0.4 mg/dL (0.2-1); BLOOD UREA NITROGEN 12.2 mg/dL (7-18); CREATININE 0.8 mg/dL (0.55-1.3); TOT PROT 8.7 g/dl (6.4-8.2)
[2020-04-14 01:55] LABS: POTASSIUM 7.3 mmol/L (3.5-5.1)
[2020-04-14] MEDS ORDERED: KETOROLAC TROMETHAMINE 30 MG/1 ML VIAL IVPUSH ONE (04:16)
[2020-04-14] MEDS ORDERED: KETOROLAC TROMETHAMINE 30 MG/1 ML VIAL ONE (04:18)
[2020-04-14 04:28] VITALS: BP 130/82; PULSE 84
== END 2020-04-14 04:28 | disposition home or self-care (01) ==
LOC: JER 00:11
PROC: 3E033NZ Introduction of Analgesics, Hypnotics, Sedatives into Peripheral Vein, Percutaneous Approach (ICD-10-PCS; principal; 2020-04-14)
PROC: 3E033GC Introduction of Other Therapeutic Substance into Peripheral Vein, Percutaneous Approach (ICD-10-PCS; 2020-04-14)
PROC: 3E023NZ Introduction of Analgesics, Hypnotics, Sedatives into Muscle, Percutaneous Approach (ICD-10-PCS; 2020-04-14)
DX: S22.31XA Fracture of one rib, right side, initial encounter for closed fracture (principal)
CPT/HCPCS: 36415; 71250-TC; 80053; 84132; 85025; 99285-25

== ENCOUNTER 2020-10-09 15:00 | Inpatient (IN) | payer OTHER ==
[2020-10-09 16:02] VITALS: BMI 34.4
[2020-10-09] MEDS ORDERED: MAG HYDROX/AL HYDROX/SIMETH 30 ML UNIT-DOSE CUP PO PRN (18:21)
[2020-10-09] MEDS ORDERED: ACETAMINOPHEN 325 MG TABLET (FP) PO PRN ×2 (18:21)
[2020-10-09] MEDS ORDERED: cloNIDine HCL 0.1 MG TABLET PO PRN (18:21)
[2020-10-09] MEDS ORDERED: IBUPROFEN 400 MG TABLET (FP) PO PRN (18:21)
[2020-10-09] MEDS ORDERED: METHADONE HCL 10 MG TABLET (FOR DETOX USE ONLY) PO ONE (18:21)
[2020-10-09] MEDS ORDERED: MAGNESIUM CITRATE 300 ML BOTTLE PO PRN (18:21)
[2020-10-09] MEDS ORDERED: BISMUTH SUBSALICYLATE 524 MG/30 ML UD PO PRN (18:21)
[2020-10-09] MEDS ORDERED: MENTHOL/PHENOL 1 EACH UD MM PRN (18:21)
[2020-10-09] MEDS ORDERED: MAGNESIUM HYDROX 2400MG/30ML ORAL SUSPENSION 30 ML CUP PO PRN (18:21)
[2020-10-09] MEDS ORDERED: ONDANSETRON *ODT* 4 MG TABLET SL PRN (18:21)
[2020-10-09] MEDS ORDERED: NICOTINE POLACRILEX 2 MG GUM BUC PRN (18:21)
[2020-10-09] MEDS: NICOTINE 21 MG/24 HOURS TOPICAL PATCH TD SCH ×2 (20:44→23:46)
[2020-10-09] MEDS: THIAMINE HCL 100 MG TABLET (FP) PO SCH ×2 (23:28→23:46)
[2020-10-09] MEDS: MELATONIN 5 MG TABLETS PO SCH ×2 (23:28→23:46)
[2020-10-09] MEDS: hydrOXYzine PAMOATE 25 MG CAPSULE (FP) PO SCH ×2 (23:28→23:46)
[2020-10-10] MEDS: NYSTATIN 500,000 UNITS/5 ML SUSPENSION PO SCH ×5 (01:41→23:14)
[2020-10-10] MEDS: PANTOPRAZOLE 20 MG TABLET PO SCH (06:07)
[2020-10-10] MEDS: GABAPENTIN 400 MG CAPSULE PO SCH ×3 (06:07→22:31)
[2020-10-10] MEDS: hydrOXYzine PAMOATE 25 MG CAPSULE (FP) PO SCH ×5 (06:08→22:31)
[2020-10-10] MEDS ORDERED: METHADONE HCL 10 MG TABLET (FOR DETOX USE ONLY) ONE (08:28)
[2020-10-10] MEDS ORDERED: METHADONE HCL 5 MG TABLET (FOR DETOX USE ONLY) ONE (08:29)
[2020-10-10] MEDS: NICOTINE 21 MG/24 HOURS TOPICAL PATCH TD SCH (09:24)
[2020-10-10] MEDS: PRENATAL VITAMINS W/ FOLIC ACID TABLET (FP) PO SCH (09:24)
[2020-10-10] MEDS ORDERED: PATIENT'S OWN MEDICATION (NON-FORMULARY) (Omeprazole [Omeprazole] 20 MG Tablet.Dr) PO SCH (10:00)
[2020-10-10] MEDS ORDERED: METHADONE (DETOX) 20 MG, METHADONE (DETOX) 5 MG PO ONE (10:00)
[2020-10-10 11:09] LABS: CALCIUM 8.9 mg/dL (8.5-10.1)
[2020-10-10 11:10] LABS: BLOOD UREA NITROGEN 10.8 mg/dL (7-18)
[2020-10-10 11:13] LABS: HEMATOCRIT 36.8 % (35.4-49); HEMOGLOBIN 12.5 GM/dL (11.7-16.9); MCH 30.1 pg (25.7-33.7); MCHC 33.9 g/dl (32.0-35.9); MEAN PLT VOLUME 7.7 fl (7.5-11.1); PLATELET COUNT 282 K/MM3 (134-434); RBC 4.14 M/mm3 (4.00-5.60); RDW 13.3 % (11.9-15.9); WHITE BLOOD COUNT 3.9 K/mm3 (4.0-10.0)
[2020-10-10 11:14] LABS: BILIRUBIN,TOTAL 0.4 mg/dL (0.2-1); CREATININE 0.7 mg/dL (0.55-1.3)
[2020-10-10 11:15] LABS: TOT PROT 7.1 g/dl (6.4-8.2)
[2020-10-10 12:02] LABS: HIV INTERPRETATION NEGATIVE (NEGATIVE)
[2020-10-10] MEDS: MELATONIN 5 MG TABLETS PO SCH (22:31)
[2020-10-10] MEDS: THIAMINE HCL 100 MG TABLET (FP) PO SCH (22:31)
[2020-10-10] MEDS: QUEtiapine FUMARATE 100 MG TABLET (FP) PO SCH (22:33)
[2020-10-11] MEDS: NYSTATIN 500,000 UNITS/5 ML SUSPENSION PO SCH ×4 (06:05→23:53)
[2020-10-11] MEDS: GABAPENTIN 400 MG CAPSULE PO SCH ×3 (06:05→22:35)
[2020-10-11] MEDS: hydrOXYzine PAMOATE 25 MG CAPSULE (FP) PO SCH ×5 (06:05→22:35)
[2020-10-11] MEDS: PANTOPRAZOLE 20 MG TABLET PO SCH (06:06)
[2020-10-11] MEDS ORDERED: METHADONE HCL 10 MG TABLET (FOR DETOX USE ONLY) PO ONE (10:00)
[2020-10-11] MEDS: METHOCARBAMOL 500 MG TABLET PO PRN (10:35)
[2020-10-11] MEDS: NICOTINE 21 MG/24 HOURS TOPICAL PATCH TD SCH (10:35)
[2020-10-11] MEDS: PRENATAL VITAMINS W/ FOLIC ACID TABLET (FP) PO SCH (10:35)
[2020-10-11] MEDS: THIAMINE HCL 100 MG TABLET (FP) PO SCH (22:35)
[2020-10-11] MEDS: QUEtiapine FUMARATE 100 MG TABLET (FP) PO SCH (22:35)
[2020-10-11] MEDS: MELATONIN 5 MG TABLETS PO SCH (22:35)
[2020-10-12] MEDS: hydrOXYzine PAMOATE 25 MG CAPSULE (FP) PO SCH ×5 (07:32→22:39)
[2020-10-12] MEDS: NYSTATIN 500,000 UNITS/5 ML SUSPENSION PO SCH ×4 (07:32→23:23)
[2020-10-12] MEDS: GABAPENTIN 400 MG CAPSULE PO SCH ×3 (07:32→22:39)
[2020-10-12] MEDS: PANTOPRAZOLE 20 MG TABLET PO SCH (08:32)
[2020-10-12] MEDS ORDERED: METHADONE HCL 5 MG TABLET (FOR DETOX USE ONLY) ONE (09:00)
[2020-10-12] MEDS ORDERED: METHADONE HCL 10 MG TABLET (FOR DETOX USE ONLY) ONE (09:00)
[2020-10-12] MEDS: NICOTINE 21 MG/24 HOURS TOPICAL PATCH TD SCH (09:09)
[2020-10-12] MEDS: PRENATAL VITAMINS W/ FOLIC ACID TABLET (FP) PO SCH (09:09)
[2020-10-12] MEDS: METHOCARBAMOL 500 MG TABLET PO PRN (09:11)
[2020-10-12] MEDS ORDERED: METHADONE (DETOX) 10 MG, METHADONE (DETOX) 5 MG PO ONE (10:00)
[2020-10-12] MEDS: THIAMINE HCL 100 MG TABLET (FP) PO SCH (22:39)
[2020-10-12] MEDS: MELATONIN 5 MG TABLETS PO SCH (22:39)
[2020-10-12] MEDS: QUEtiapine FUMARATE 100 MG TABLET (FP) PO SCH (22:39)
[2020-10-13] MEDS: NYSTATIN 500,000 UNITS/5 ML SUSPENSION PO SCH (07:21)
[2020-10-13] MEDS: GABAPENTIN 400 MG CAPSULE PO SCH (07:21)
[2020-10-13] MEDS: hydrOXYzine PAMOATE 25 MG CAPSULE (FP) PO SCH ×2 (07:21→09:55)
[2020-10-13] MEDS: PANTOPRAZOLE 20 MG TABLET PO SCH (08:35)
[2020-10-13 09:44] VITALS: BP 121/80; PULSE 75; TEMP 96.9
[2020-10-13] MEDS: NICOTINE 21 MG/24 HOURS TOPICAL PATCH TD SCH (09:55)
[2020-10-13] MEDS: PRENATAL VITAMINS W/ FOLIC ACID TABLET (FP) PO SCH (09:55)
[2020-10-13] MEDS: METHOCARBAMOL 500 MG TABLET PO PRN (09:55)
[2020-10-13] MEDS ORDERED: METHADONE HCL 10 MG TABLET (FOR DETOX USE ONLY) PO ONE (10:00)
[2020-10-14] MEDS ORDERED: METHADONE HCL 5 MG TABLET (FOR DETOX USE ONLY) PO ONE (06:00)
== END 2020-10-13 11:21 | disposition left against medical advice (07) | DRG 770 ==
LOC: YASAS 15:00 → Y3N 19:06
PROVIDERS: ADMIT Allergy & Immunology; ATTEND Allergy & Immunology
PROC: HZ2ZZZZ Detoxification Services for Substance Abuse Treatment (ICD-10-PCS; principal; 2020-10-09)
DX: F11.23 Opioid dependence with withdrawal (principal); F14.20 Cocaine dependence, uncomplicated; F17.210 Nicotine dependence, cigarettes, uncomplicated; F19.280 Other psychoactive substance dependence with psychoactive substance-induced anxiety disorder; F41.9 Anxiety disorder, unspecified; F32.9 Major depressive disorder, single episode, unspecified; E78.5 Hyperlipidemia, unspecified; I25.10 Atherosclerotic heart disease of native coronary artery without angina pectoris; Z95.5 Presence of coronary angioplasty implant and graft; B18.2 Chronic viral hepatitis C; K21.9 Gastro-esophageal reflux disease without esophagitis; M54.5 Low back pain; G89.29 Other chronic pain; R73.03 Prediabetes; Z86.11 Personal history of tuberculosis; Z86.19 Personal history of other infectious and parasitic diseases
CPT/HCPCS: 36415; 71046-TC-FY; 80053; 83036; 85027; 86780; 87389; C9803; J0735; U0003; U0005

== ENCOUNTER 2020-11-10 22:21 | Emergency (ER) | payer OTHER ==
[2020-11-10 22:45] VITALS: TEMP 98.9; BMI 33.6
[2020-11-10] MEDS ORDERED: MAG HYDROX/AL HYDROX/SIMETH 30 ML UNIT-DOSE CUP PO ONE (23:34)
[2020-11-10] MEDS ORDERED: ACETAMINOPHEN 500 MG TABLET (FP) PO ONE (23:34)
[2020-11-10] MEDS ORDERED: SODIUM CHLORIDE 1,000 ML IV STA (23:40)
[2020-11-10] MEDS ORDERED: FAMOTIDINE 20 MG/50 ML IVPB 20 MG/50 ML MG IVPB ONE (23:40)
[2020-11-11 00:44] LABS: BASO % 0.9 % (0-2.0); EOS % 0.8 % (0-4.5); HEMATOCRIT 41.7 % (35.4-49); HEMOGLOBIN 14.5 GM/dL (11.7-16.9); LYMPH % 38.5 % (8-40); MCH 30.9 pg (25.7-33.7); MCHC 34.8 g/dl (32.0-35.9); MEAN PLT VOLUME 7.3 fl (7.5-11.1); MONO % 5.4 % (3.8-10.2); NEUT % 54.4 % (42.8-82.8); PLATELET COUNT 312 K/MM3 (134-434); RBC 4.68 M/mm3 (4.00-5.60); RDW 13.9 % (11.9-15.9); WHITE BLOOD COUNT 6.9 K/mm3 (4.0-10.0)
[2020-11-11 01:03] LABS: CHLORIDE 105 mmol/L (98-107); SODIUM 139 mmol/L (136-145)
[2020-11-11 01:06] LABS: ALBUMIN 3.9 g/dl (3.4-5.0); ANION GAP 6 MMOL/L (8-16); CALCIUM 9.3 mg/dL (8.5-10.1); CO2 28 mmol/L (21-32); GLUCOSE,RANDOM 125 mg/dL (74-106)
[2020-11-11 01:09] LABS: CREATININE 0.9 mg/dL (0.55-1.3); SGOT/AST 44 U/L (15-37); SGPT/ALT 55 U/L (13-61)
[2020-11-11 01:11] LABS: BILIRUBIN,TOTAL 0.6 mg/dL (0.2-1); TOT PROT 8.8 g/dl (6.4-8.2)
[2020-11-11 01:12] LABS: ALK PHOS 82 U/L (45-117)
[2020-11-11 06:20] VITALS: BP 139/73; PULSE 89
== END 2020-11-11 06:26 | disposition home or self-care (01) ==
LOC: JER 22:21
DX: F19.10 Other psychoactive substance abuse, uncomplicated (principal)
CPT/HCPCS: 36415; 80053; 82550; 84484; 85025; 93005; 93010; 99285-25

== ENCOUNTER 2020-12-14 17:02 | Inpatient (IN) | payer OTHER ==
[2020-12-14 17:32] VITALS: BMI 33.0
[2020-12-14] MEDS ORDERED: NICOTINE POLACRILEX 2 MG GUM BUC PRN (19:46)
[2020-12-14] MEDS ORDERED: ACETAMINOPHEN 325 MG TABLET (FP) PO PRN ×2 (19:46)
[2020-12-14] MEDS ORDERED: MENTHOL/PHENOL 1 EACH UD MM PRN (19:46)
[2020-12-14] MEDS ORDERED: MAG HYDROX/AL HYDROX/SIMETH 30 ML UNIT-DOSE CUP PO PRN (19:46)
[2020-12-14] MEDS ORDERED: BISMUTH SUBSALICYLATE 524 MG/30 ML PO PRN (19:46)
[2020-12-14] MEDS ORDERED: IBUPROFEN 400 MG TABLET (FP) PO PRN (19:46)
[2020-12-14] MEDS ORDERED: MAGNESIUM HYDROX 2400MG/30ML ORAL SUSPENSION 30 ML CUP PO PRN (19:46)
[2020-12-14] MEDS ORDERED: MAGNESIUM CITRATE 300 ML BOTTLE PO PRN (19:46)
[2020-12-14] MEDS ORDERED: ONDANSETRON *ODT* 4 MG TABLET SL PRN (19:46)
[2020-12-14] MEDS: MELATONIN 5 MG TABLETS PO SCH (22:00)
[2020-12-14] MEDS: THIAMINE HCL 100 MG TABLET (FP) PO SCH (22:00)
[2020-12-14] MEDS: hydrOXYzine PAMOATE 25 MG CAPSULE (FP) PO SCH (22:00)
[2020-12-14] MEDS: METHOCARBAMOL 500 MG TABLET PO PRN (22:02)
[2020-12-14] MEDS ORDERED: cloNIDine HCL 0.1 MG TABLET PO PRN (22:07)
[2020-12-14] MEDS ORDERED: METHADONE HCL 10 MG TABLET (FOR DETOX USE ONLY) PO ONE (22:07)
[2020-12-14] MEDS: diazePAM 5 MG TABLET PO SCH (22:46)
[2020-12-15] MEDS: diazePAM 5 MG TABLET PO SCH ×4 (06:25→22:43)
[2020-12-15] MEDS: hydrOXYzine PAMOATE 25 MG CAPSULE (FP) PO SCH ×5 (06:25→22:43)
[2020-12-15] MEDS ORDERED: METHADONE HCL 10 MG TABLET (FOR DETOX USE ONLY) ONE (08:41)
[2020-12-15] MEDS ORDERED: METHADONE HCL 5 MG TABLET (FOR DETOX USE ONLY) ONE (08:42)
[2020-12-15] MEDS ORDERED: METHADONE (DETOX) 20 MG, METHADONE (DETOX) 5 MG PO ONE (10:00)
[2020-12-15] MEDS: NICOTINE 7 MG/24 HOURS TOPICAL PATCH TD SCH (10:12)
[2020-12-15] MEDS: PRENATAL VITAMINS W/ FOLIC ACID TABLET (FP) PO SCH (10:13)
[2020-12-15] MEDS: THIAMINE HCL 100 MG TABLET (FP) PO SCH (22:43)
[2020-12-15] MEDS: MELATONIN 5 MG TABLETS PO SCH (22:43)
[2020-12-15] MEDS: METHOCARBAMOL 500 MG TABLET PO PRN (22:44)
[2020-12-16] MEDS: hydrOXYzine PAMOATE 25 MG CAPSULE (FP) PO SCH ×5 (07:08→22:23)
[2020-12-16] MEDS: diazePAM 5 MG TABLET PO SCH ×3 (07:08→22:23)
[2020-12-16] MEDS ORDERED: METHADONE HCL 10 MG TABLET (FOR DETOX USE ONLY) PO ONE (10:00)
[2020-12-16] MEDS: PRENATAL VITAMINS W/ FOLIC ACID TABLET (FP) PO SCH (10:15)
[2020-12-16] MEDS: NICOTINE 7 MG/24 HOURS TOPICAL PATCH TD SCH (10:16)
[2020-12-16] MEDS: METHOCARBAMOL 500 MG TABLET PO PRN (10:16)
[2020-12-16] MEDS: diazePAM 5 MG TABLET PO PRN ×2 (10:18→17:34)
[2020-12-16] MEDS: PANTOPRAZOLE 40 MG TABLET PO SCH ×2 (12:19→17:35)
[2020-12-16] MEDS: THIAMINE HCL 100 MG TABLET (FP) PO SCH (22:23)
[2020-12-16] MEDS: MELATONIN 5 MG TABLETS PO SCH (22:23)
[2020-12-17] MEDS: hydrOXYzine PAMOATE 25 MG CAPSULE (FP) PO SCH ×2 (05:52→10:23)
[2020-12-17] MEDS ORDERED: diazePAM 5 MG TABLET PO SCH (06:00)
[2020-12-17] MEDS ORDERED: METHADONE (DETOX) 10 MG, METHADONE (DETOX) 5 MG PO ONE (10:00)
[2020-12-17] MEDS ORDERED: METHADONE HCL 10 MG TABLET (FOR DETOX USE ONLY) ONE (10:13)
[2020-12-17] MEDS ORDERED: METHADONE HCL 5 MG TABLET (FOR DETOX USE ONLY) ONE (10:14)
[2020-12-17] MEDS: NICOTINE 7 MG/24 HOURS TOPICAL PATCH TD SCH (10:23)
[2020-12-17] MEDS: PANTOPRAZOLE 40 MG TABLET PO SCH (10:23)
[2020-12-17 10:24] VITALS: TEMP 97.1
[2020-12-17] MEDS: PRENATAL VITAMINS W/ FOLIC ACID TABLET (FP) PO SCH (10:24)
[2020-12-17 10:27] VITALS: BP 133/86; PULSE 96
[2020-12-17] MEDS: diazePAM 5 MG TABLET PO PRN (10:31)
[2020-12-18] MEDS ORDERED: diazePAM 5 MG TABLET PO ONE (06:00)
[2020-12-18 06:09] LABS: SARS-CoV-2 NAA Not Detected (Not Detected)
[2020-12-18] MEDS ORDERED: METHADONE HCL 10 MG TABLET (FOR DETOX USE ONLY) PO ONE (10:00)
[2020-12-19] MEDS ORDERED: METHADONE HCL 5 MG TABLET (FOR DETOX USE ONLY) PO ONE (06:00)
== END 2020-12-17 12:21 | disposition left against medical advice (07) | DRG 770 ==
LOC: YASAS 17:02 → Y3N 20:13 → UNDOADMIN 20:13
PROVIDERS: ADMIT Allergy & Immunology; ATTEND Allergy & Immunology
PROC: HZ2ZZZZ Detoxification Services for Substance Abuse Treatment (ICD-10-PCS; principal; 2020-12-14)
DX: F10.230 Alcohol dependence with withdrawal, uncomplicated (principal); F11.23 Opioid dependence with withdrawal; F13.20 Sedative, hypnotic or anxiolytic dependence, uncomplicated; F14.20 Cocaine dependence, uncomplicated; E78.5 Hyperlipidemia, unspecified; F17.210 Nicotine dependence, cigarettes, uncomplicated; K21.9 Gastro-esophageal reflux disease without esophagitis; B18.2 Chronic viral hepatitis C; R73.03 Prediabetes; M54.5 Low back pain; G89.29 Other chronic pain; I25.10 Atherosclerotic heart disease of native coronary artery without angina pectoris; Z95.5 Presence of coronary angioplasty implant and graft; Z86.16 Personal history of COVID-19; Z86.11 Personal history of tuberculosis
CPT/HCPCS: C9803; U0003; U0005

== ENCOUNTER 2021-01-15 16:05 | Inpatient (IN) | payer OTHER ==
[2021-01-15 16:12] VITALS: BMI 34.7
[2021-01-15] MEDS ORDERED: MAGNESIUM HYDROX 2400MG/30ML ORAL SUSPENSION 30 ML CUP PO PRN (20:15)
[2021-01-15] MEDS ORDERED: ONDANSETRON *ODT* 4 MG TABLET SL PRN (20:15)
[2021-01-15] MEDS ORDERED: ACETAMINOPHEN 325 MG TABLET (FP) PO PRN ×2 (20:15)
[2021-01-15] MEDS ORDERED: NICOTINE POLACRILEX 2 MG GUM BUC PRN (20:15)
[2021-01-15] MEDS ORDERED: IBUPROFEN 400 MG TABLET (FP) PO PRN (20:15)
[2021-01-15] MEDS ORDERED: MENTHOL/PHENOL 1 EACH UD MM PRN (20:15)
[2021-01-15] MEDS ORDERED: MAGNESIUM CITRATE 300 ML BOTTLE PO PRN (20:15)
[2021-01-15] MEDS ORDERED: MAG HYDROX/AL HYDROX/SIMETH 30 ML UNIT-DOSE CUP PO PRN (20:15)
[2021-01-15] MEDS ORDERED: METHOCARBAMOL 500 MG TABLET PO PRN (20:15)
[2021-01-15] MEDS ORDERED: BISMUTH SUBSALICYLATE 524 MG/30 ML PO PRN (20:15)
[2021-01-15] MEDS ORDERED: hydrOXYzine PAMOATE 25 MG CAPSULE (FP) PO PRN (20:15)
[2021-01-15] MEDS ORDERED: cloNIDine HCL 0.1 MG TABLET PO PRN (20:17)
[2021-01-15] MEDS ORDERED: METHADONE HCL 10 MG TABLET (FOR DETOX USE ONLY) PO ONE (20:17)
[2021-01-15] MEDS: MELATONIN 5 MG TABLETS PO SCH (21:57)
[2021-01-15] MEDS: THIAMINE HCL 100 MG TABLET (FP) PO SCH (21:57)
[2021-01-15] MEDS: diazePAM 5 MG TABLET PO PRN (21:59)
[2021-01-16] MEDS ORDERED: METHADONE HCL 10 MG TABLET (FOR DETOX USE ONLY) ONE (08:42)
[2021-01-16] MEDS ORDERED: METHADONE HCL 5 MG TABLET (FOR DETOX USE ONLY) ONE (08:42)
[2021-01-16] MEDS ORDERED: METHADONE (DETOX) 20 MG, METHADONE (DETOX) 5 MG PO ONE (10:00)
[2021-01-16] MEDS: PRENATAL VITAMINS W/ FOLIC ACID TABLET (FP) PO SCH (10:09)
[2021-01-16] MEDS: diazePAM 5 MG TABLET PO PRN ×3 (10:10→22:42)
[2021-01-16] MEDS: PANTOPRAZOLE 20 MG TABLET PO SCH (10:13)
[2021-01-16 10:49] LABS: HEMATOCRIT 36.5 % (35.4-49); HEMOGLOBIN 12.3 GM/dL (11.7-16.9); MCH 30.5 pg (25.7-33.7); MCHC 33.8 g/dl (32.0-35.9); MEAN CELL VOLUME 90.2 fl (80-96); MEAN PLT VOLUME 7.6 fl (7.5-11.1); PLATELET COUNT 270 10^3/uL (134-434); RBC 4.04 M/mm3 (4.00-5.60); RDW 13.1 % (11.9-15.9); WHITE BLOOD COUNT 4.2 K/mm3 (4.0-10.0)
[2021-01-16 11:01] LABS: ALBUMIN 3.2 g/dl (3.4-5.0); BLOOD UREA NITROGEN 12.5 mg/dL (7-18); CALCIUM 8.6 mg/dL (8.5-10.1)
[2021-01-16 11:04] LABS: CREATININE 0.7 mg/dL (0.55-1.3)
[2021-01-16 11:06] LABS: BILIRUBIN,TOTAL 0.4 mg/dL (0.2-1); TOT PROT 7.3 g/dl (6.4-8.2)
[2021-01-16] MEDS: QUEtiapine FUMARATE 100 MG TABLET (FP) PO SCH (22:40)
[2021-01-16] MEDS: THIAMINE HCL 100 MG TABLET (FP) PO SCH (22:40)
[2021-01-16] MEDS: MELATONIN 5 MG TABLETS PO SCH (22:41)
[2021-01-17] MEDS ORDERED: METHADONE HCL 10 MG TABLET (FOR DETOX USE ONLY) PO ONE (10:00)
[2021-01-17] MEDS: diazePAM 5 MG TABLET PO PRN ×2 (10:36→22:46)
[2021-01-17] MEDS: PRENATAL VITAMINS W/ FOLIC ACID TABLET (FP) PO SCH (10:36)
[2021-01-17] MEDS: PANTOPRAZOLE 20 MG TABLET PO SCH (11:32)
[2021-01-17] MEDS: MELATONIN 5 MG TABLETS PO SCH ×2 (22:32→22:45)
[2021-01-17] MEDS: QUEtiapine FUMARATE 100 MG TABLET (FP) PO SCH ×2 (22:32→22:45)
[2021-01-17] MEDS: THIAMINE HCL 100 MG TABLET (FP) PO SCH ×2 (22:32→22:45)
[2021-01-18] MEDS: diazePAM 5 MG TABLET PO PRN ×2 (05:23→10:16)
[2021-01-18] MEDS ORDERED: METHADONE HCL 10 MG TABLET (FOR DETOX USE ONLY) ONE (08:52)
[2021-01-18] MEDS ORDERED: METHADONE HCL 5 MG TABLET (FOR DETOX USE ONLY) ONE (08:53)
[2021-01-18] MEDS ORDERED: METHADONE (DETOX) 10 MG, METHADONE (DETOX) 5 MG PO ONE (10:00)
[2021-01-18] MEDS: PRENATAL VITAMINS W/ FOLIC ACID TABLET (FP) PO SCH (10:14)
[2021-01-18] MEDS: PANTOPRAZOLE 20 MG TABLET PO SCH (10:14)
[2021-01-18 13:41] VITALS: BP 118/68; PULSE 65; TEMP 96.9
[2021-01-19] MEDS ORDERED: METHADONE HCL 10 MG TABLET (FOR DETOX USE ONLY) PO ONE (10:00)
[2021-01-20] MEDS ORDERED: METHADONE HCL 5 MG TABLET (FOR DETOX USE ONLY) PO ONE (06:00)
== END 2021-01-18 15:35 | disposition left against medical advice (07) | DRG 770 ==
LOC: YASAS 16:05 → Y3N 20:56
PROVIDERS: ADMIT Allergy & Immunology; ATTEND Allergy & Immunology
PROC: HZ2ZZZZ Detoxification Services for Substance Abuse Treatment (ICD-10-PCS; principal; 2021-01-15)
DX: F11.23 Opioid dependence with withdrawal (principal); F10.230 Alcohol dependence with withdrawal, uncomplicated; F14.20 Cocaine dependence, uncomplicated; F17.210 Nicotine dependence, cigarettes, uncomplicated; I25.10 Atherosclerotic heart disease of native coronary artery without angina pectoris; K21.9 Gastro-esophageal reflux disease without esophagitis; E78.2 Mixed hyperlipidemia; E66.9 Obesity, unspecified; Z68.34 Body mass index [BMI] 34.0-34.9, adult; R73.03 Prediabetes; Z87.438 Personal history of other diseases of male genital organs; Z95.5 Presence of coronary angioplasty implant and graft; Z86.11 Personal history of tuberculosis; Z86.19 Personal history of other infectious and parasitic diseases; Z86.69 Personal history of other diseases of the nervous system and sense organs
CPT/HCPCS: 36415; 80053; 85027; 86780; C9803; U0003; U0005

== ENCOUNTER 2021-04-15 18:08 | Inpatient (IN) | payer OTHER ==
[2021-04-15] MEDS ORDERED: NICOTINE POLACRILEX 2 MG GUM BUC PRN (22:45)
[2021-04-15] MEDS ORDERED: MENTHOL/PHENOL 1 EACH UD MM PRN (22:45)
[2021-04-15] MEDS ORDERED: MAG HYDROX/AL HYDROX/SIMETH 30 ML UNIT-DOSE CUP PO PRN (22:45)
[2021-04-15] MEDS ORDERED: MAGNESIUM HYDROX 2400MG/30ML ORAL SUSPENSION 30 ML CUP PO PRN (22:45)
[2021-04-15] MEDS ORDERED: ACETAMINOPHEN 325 MG TABLET (FP) PO PRN ×2 (22:45)
[2021-04-15] MEDS ORDERED: IBUPROFEN 400 MG TABLET (FP) PO PRN (22:45)
[2021-04-15] MEDS ORDERED: NICOTINE 10 MG CARTRIDGE (INHALER) IH PRN (22:45)
[2021-04-15] MEDS ORDERED: P-EPHED 60MG/TRIPROLIDI 2.5MG TABLET PO PRN (22:45)
[2021-04-15] MEDS ORDERED: METHOCARBAMOL 500 MG TABLET PO PRN (22:45)
[2021-04-15] MEDS ORDERED: MAGNESIUM CITRATE 300 ML BOTTLE PO PRN (22:45)
[2021-04-15] MEDS ORDERED: BISMUTH SUBSALICYLATE 524 MG/30 ML PO PRN (22:45)
[2021-04-15] MEDS ORDERED: ONDANSETRON *ODT* 4 MG TABLET SL PRN (22:45)
[2021-04-15] MEDS ORDERED: hydrOXYzine PAMOATE 25 MG CAPSULE (FP) PO PRN (22:45)
[2021-04-16 02:26] VITALS: BMI 33.0
[2021-04-16] MEDS ORDERED: methaDONE HCL 10 MG TABLET (FOR DETOX USE ONLY) PO ONE ×2 (04:06→15:53)
[2021-04-16] MEDS ORDERED: diazePAM 5 MG TABLET PO PRN (04:06)
[2021-04-16] MEDS ORDERED: cloNIDine HCL 0.1 MG TABLET PO PRN (04:06)
[2021-04-16] MEDS: diazePAM 5 MG TABLET PO SCH ×4 (05:52→23:05)
[2021-04-16] MEDS: PRENATAL VITAMINS W/ FOLIC ACID TABLET (FP) PO SCH (10:37)
[2021-04-16 10:46] LABS: HEMATOCRIT 36.2 % (35.4-49); HEMOGLOBIN 12.5 GM/dL (11.7-16.9); MCH 30.8 pg (25.7-33.7); MCHC 34.6 g/dl (32.0-35.9); MEAN PLT VOLUME 7.7 fl (7.5-11.1); PLATELET COUNT 266 10^3/uL (134-434); RBC 4.07 M/mm3 (4.00-5.60)
[2021-04-16 11:00] LABS: ALBUMIN 2.9 g/dl (3.4-5.0); CALCIUM 8.5 mg/dL (8.5-10.1)
[2021-04-16 11:01] LABS: BLOOD UREA NITROGEN 7.7 mg/dL (7-18)
[2021-04-16 11:02] LABS: BILIRUBIN,TOTAL 0.2 mg/dL (0.2-1)
[2021-04-16 11:03] LABS: TOT PROT 7.2 g/dl (6.4-8.2)
[2021-04-16 11:04] LABS: CREATININE 0.8 mg/dL (0.55-1.3)
[2021-04-16 12:35] LABS: HIV INTERPRETATION NEGATIVE (NEGATIVE)
[2021-04-16] MEDS: GABAPENTIN 400 MG CAPSULE PO SCH ×3 (14:18→23:07)
[2021-04-16] MEDS: PANTOPRAZOLE 20 MG TABLET PO SCH (17:43)
[2021-04-16] MEDS ORDERED: MELATONIN 5 MG TABLETS PO SCH (22:00)
[2021-04-16] MEDS ORDERED: THIAMINE HCL 100 MG TABLET (FP) PO SCH (22:00)
[2021-04-17] MEDS: diazePAM 5 MG TABLET PO SCH ×2 (05:16→15:02)
[2021-04-17] MEDS: GABAPENTIN 400 MG CAPSULE PO SCH ×2 (05:16→15:01)
[2021-04-17] MEDS ORDERED: methaDONE HCL 10 MG TABLET (FOR DETOX USE ONLY) ONE (09:40)
[2021-04-17] MEDS: PANTOPRAZOLE 20 MG TABLET PO SCH (10:15)
[2021-04-17] MEDS: PRENATAL VITAMINS W/ FOLIC ACID TABLET (FP) PO SCH (10:15)
[2021-04-17 17:44] VITALS: BP 112/64; PULSE 67; TEMP 96.9
[2021-04-18] MEDS ORDERED: diazePAM 5 MG TABLET PO SCH (06:00)
[2021-04-18] MEDS ORDERED: methaDONE HCL 10 MG TABLET (FOR DETOX USE ONLY) PO ONE (10:00)
[2021-04-19] MEDS ORDERED: diazePAM 5 MG TABLET PO ONE (06:00)
== END 2021-04-17 17:45 | disposition left against medical advice (07) | DRG 770 ==
LOC: YASAS 18:08 → UNDOADMIN 23:26 → Y3N 23:26
PROVIDERS: ADMIT Allergy & Immunology; ATTEND Allergy & Immunology
PROC: HZ2ZZZZ Detoxification Services for Substance Abuse Treatment (ICD-10-PCS; principal; 2021-04-15)
DX: F11.23 Opioid dependence with withdrawal (principal); F10.230 Alcohol dependence with withdrawal, uncomplicated; F14.10 Cocaine abuse, uncomplicated; F17.210 Nicotine dependence, cigarettes, uncomplicated; I25.10 Atherosclerotic heart disease of native coronary artery without angina pectoris; E78.5 Hyperlipidemia, unspecified; K21.9 Gastro-esophageal reflux disease without esophagitis; B18.2 Chronic viral hepatitis C; M54.5 Low back pain; G89.29 Other chronic pain; R73.03 Prediabetes; R01.1 Cardiac murmur, unspecified; Z95.5 Presence of coronary angioplasty implant and graft; Z87.438 Personal history of other diseases of male genital organs; Z56.0 Unemployment, unspecified
CPT/HCPCS: 36415; 80053; 82947; 82962; 83036; 85027; 86780; 87389; C9803; U0003; U0005

== ENCOUNTER 2021-04-18 14:21 | Inpatient (IN) | payer OTHER ==
[2021-04-18 16:39] VITALS: BMI 33.9
[2021-04-18] MEDS ORDERED: BISMUTH SUBSALICYLATE 524 MG/30 ML PO PRN (18:48)
[2021-04-18] MEDS ORDERED: ACETAMINOPHEN 325 MG TABLET (FP) PO PRN ×2 (18:48)
[2021-04-18] MEDS ORDERED: cloNIDine HCL 0.1 MG TABLET PO PRN (18:48)
[2021-04-18] MEDS ORDERED: NALOXONE (NARCAN) HCL 4 MG/0.1 ML SPRAY NS PRN (18:48)
[2021-04-18] MEDS ORDERED: ONDANSETRON *ODT* 4 MG TABLET SL PRN (18:48)
[2021-04-18] MEDS ORDERED: MAGNESIUM CITRATE 300 ML BOTTLE PO PRN (18:48)
[2021-04-18] MEDS ORDERED: MAG HYDROX/AL HYDROX/SIMETH 30 ML UNIT-DOSE CUP PO PRN (18:48)
[2021-04-18] MEDS ORDERED: IBUPROFEN 400 MG TABLET (FP) PO PRN (18:48)
[2021-04-18] MEDS ORDERED: NICOTINE 10 MG CARTRIDGE (INHALER) IH PRN (18:48)
[2021-04-18] MEDS ORDERED: MENTHOL/PHENOL 1 EACH UD MM PRN (18:48)
[2021-04-18] MEDS ORDERED: MAGNESIUM HYDROX 2400MG/30ML ORAL SUSPENSION 30 ML CUP PO PRN (18:48)
[2021-04-18] MEDS ORDERED: METHOCARBAMOL 500 MG TABLET PO PRN (18:48)
[2021-04-18] MEDS ORDERED: methaDONE HCL 10 MG TABLET (FOR DETOX USE ONLY) PO ONE (20:00)
[2021-04-18] MEDS: diazePAM 5 MG TABLET PO SCH ×2 (20:00→23:40)
[2021-04-18] MEDS: MELATONIN 5 MG TABLETS PO SCH (23:39)
[2021-04-18] MEDS: THIAMINE HCL 100 MG TABLET (FP) PO SCH (23:39)
[2021-04-18] MEDS: hydrOXYzine PAMOATE 25 MG CAPSULE (FP) PO SCH (23:39)
[2021-04-19] MEDS: hydrOXYzine PAMOATE 25 MG CAPSULE (FP) PO SCH ×5 (05:36→22:29)
[2021-04-19] MEDS: diazePAM 5 MG TABLET PO SCH ×2 (05:36→17:54)
[2021-04-19] MEDS: GABAPENTIN 400 MG CAPSULE PO SCH ×4 (05:36→22:29)
[2021-04-19] MEDS ORDERED: methaDONE HCL 10 MG TABLET (FOR DETOX USE ONLY) ONE (09:19)
[2021-04-19] MEDS: diazePAM 5 MG TABLET PO PRN ×2 (10:14→22:30)
[2021-04-19] MEDS: THIAMINE HCL 100 MG TABLET (FP) PO SCH (22:29)
[2021-04-19] MEDS: MELATONIN 5 MG TABLETS PO SCH (22:29)
[2021-04-20] MEDS: hydrOXYzine PAMOATE 25 MG CAPSULE (FP) PO SCH ×2 (05:52→10:04)
[2021-04-20] MEDS: GABAPENTIN 400 MG CAPSULE PO SCH (05:52)
[2021-04-20] MEDS ORDERED: diazePAM 5 MG TABLET PO ONE (06:00)
[2021-04-20 09:51] VITALS: BP 129/73; PULSE 86; TEMP 96.4
[2021-04-20] MEDS ORDERED: methaDONE HCL 10 MG TABLET (FOR DETOX USE ONLY) PO ONE (10:00)
[2021-04-20] MEDS: diazePAM 5 MG TABLET PO PRN (10:03)
[2021-04-20 15:42] LABS: HIV INTERPRETATION NEGATIVE (NEGATIVE)
== END 2021-04-20 12:22 | disposition home or self-care (01) | DRG 773 ==
LOC: YASAS 14:21 → Y3N 18:35
PROVIDERS: ADMIT Allergy & Immunology; ATTEND Allergy & Immunology
PROC: HZ2ZZZZ Detoxification Services for Substance Abuse Treatment (ICD-10-PCS; principal; 2021-04-18)
DX: F10.230 Alcohol dependence with withdrawal, uncomplicated (principal); F11.20 Opioid dependence, uncomplicated; F14.20 Cocaine dependence, uncomplicated; F17.210 Nicotine dependence, cigarettes, uncomplicated; K21.9 Gastro-esophageal reflux disease without esophagitis; M54.50 Low back pain, unspecified; G89.29 Other chronic pain; R73.03 Prediabetes; I25.10 Atherosclerotic heart disease of native coronary artery without angina pectoris; Z95.5 Presence of coronary angioplasty implant and graft; Z86.11 Personal history of tuberculosis; Z86.19 Personal history of other infectious and parasitic diseases
CPT/HCPCS: 36415; 86780; 87389; C9803; U0003; U0005

== ENCOUNTER 2021-06-09 17:40 | Inpatient (IN) | payer OTHER ==
[2021-06-09] MEDS ORDERED: MENTHOL/PHENOL 1 EACH UD MM PRN (21:21)
[2021-06-09] MEDS ORDERED: IBUPROFEN 400 MG TABLET (FP) PO PRN (21:21)
[2021-06-09] MEDS ORDERED: hydrOXYzine PAMOATE 25 MG CAPSULE (FP) PO PRN (21:21)
[2021-06-09] MEDS ORDERED: ONDANSETRON *ODT* 4 MG TABLET SL PRN (21:21)
[2021-06-09] MEDS ORDERED: NICOTINE POLACRILEX 2 MG GUM BUC PRN (21:21)
[2021-06-09] MEDS ORDERED: MAGNESIUM CITRATE 300 ML BOTTLE PO PRN (21:21)
[2021-06-09] MEDS ORDERED: BISMUTH SUBSALICYLATE 524 MG/30 ML PO PRN (21:21)
[2021-06-09] MEDS ORDERED: ACETAMINOPHEN 325 MG TABLET (FP) PO PRN ×2 (21:21)
[2021-06-09] MEDS ORDERED: MAGNESIUM HYDROX 2400MG/30ML ORAL SUSPENSION 30 ML CUP PO PRN (21:21)
[2021-06-09] MEDS ORDERED: MAG HYDROX/AL HYDROX/SIMETH 30 ML UNIT-DOSE CUP PO PRN (21:21)
[2021-06-09] MEDS ORDERED: METHOCARBAMOL 500 MG TABLET PO PRN (21:21)
[2021-06-09] MEDS ORDERED: diazePAM 5 MG TABLET PO PRN (21:23)
[2021-06-09 22:29] VITALS: BMI 32.7
[2021-06-09] MEDS: THIAMINE HCL 100 MG TABLET (FP) PO SCH (23:09)
[2021-06-09] MEDS: MELATONIN 5 MG TABLETS PO SCH (23:09)
[2021-06-10] MEDS ORDERED: PRENATAL VITAMINS W/ FOLIC ACID TABLET (FP) PO SCH (10:00)
[2021-06-10] MEDS ORDERED: diazePAM 5 MG TABLET PO PRN (10:02)
[2021-06-10] MEDS ORDERED: methaDONE HCL 10 MG TABLET (FOR DETOX USE ONLY) PO ONE (10:02)
[2021-06-10] MEDS ORDERED: cloNIDine HCL 0.1 MG TABLET PO PRN (10:02)
[2021-06-10] MEDS: diazePAM 5 MG TABLET PO SCH ×3 (10:50→22:21)
[2021-06-10] MEDS ORDERED: FLU VACC QS2021-22(6MOS UP)/PF 60 MCG/0.5 ML SYRINGE IM ONE (13:00)
[2021-06-10] MEDS: THIAMINE HCL 100 MG TABLET (FP) PO SCH (22:21)
[2021-06-10] MEDS: MELATONIN 5 MG TABLETS PO SCH (22:21)
[2021-06-11] MEDS: diazePAM 5 MG TABLET PO SCH (05:08)
[2021-06-11 06:23] VITALS: BP 99/64; PULSE 64; TEMP 97.3
[2021-06-11 10:33] LABS: HEMATOCRIT 40.3 % (35.4-49); HEMOGLOBIN 13.8 GM/dL (11.7-16.9); MCH 30.4 pg (25.7-33.7); MCHC 34.3 g/dl (32.0-35.9); MEAN CELL VOLUME 88.5 fl (80-96); MEAN PLT VOLUME 7.7 fl (7.5-11.1); PLATELET COUNT 227 10^3/uL (134-434); RBC 4.55 M/mm3 (4.00-5.60); RDW 13.3 % (11.9-15.9); WHITE BLOOD COUNT 3.2 K/mm3 (4.0-10.0)
[2021-06-11 12:35] LABS: ALBUMIN 3.4 g/dl (3.4-5.0); BILIRUBIN,TOTAL 0.2 mg/dL (0.2-1); BLOOD UREA NITROGEN 5.9 mg/dL (7-18); CALCIUM 9.3 mg/dL (8.5-10.1); CREATININE 0.7 mg/dL (0.55-1.3)
[2021-06-12] MEDS ORDERED: diazePAM 5 MG TABLET PO SCH (06:00)
[2021-06-12] MEDS ORDERED: methaDONE HCL 10 MG TABLET (FOR DETOX USE ONLY) PO ONE (10:00)
[2021-06-13] MEDS ORDERED: diazePAM 5 MG TABLET PO SCH (06:00)
[2021-06-14] MEDS ORDERED: diazePAM 5 MG TABLET PO ONE (06:00)
[2021-06-14] MEDS ORDERED: methaDONE HCL 10 MG TABLET (FOR DETOX USE ONLY) PO ONE (10:00)
== END 2021-06-11 08:15 | disposition left against medical advice (07) | DRG 770 ==
LOC: YASAS 17:40 → Y6N 22:00
PROVIDERS: ADMIT Allergy & Immunology; ATTEND Allergy & Immunology
PROC: HZ2ZZZZ Detoxification Services for Substance Abuse Treatment (ICD-10-PCS; principal; 2021-06-09)
DX: F11.23 Opioid dependence with withdrawal (principal); F13.230 Sedative, hypnotic or anxiolytic dependence with withdrawal, uncomplicated; F14.20 Cocaine dependence, uncomplicated; F12.20 Cannabis dependence, uncomplicated; F17.210 Nicotine dependence, cigarettes, uncomplicated; E78.5 Hyperlipidemia, unspecified; I25.10 Atherosclerotic heart disease of native coronary artery without angina pectoris; Z95.5 Presence of coronary angioplasty implant and graft; K21.9 Gastro-esophageal reflux disease without esophagitis; M54.50 Low back pain, unspecified; G89.29 Other chronic pain; R73.03 Prediabetes; Z86.11 Personal history of tuberculosis; Z86.19 Personal history of other infectious and parasitic diseases
CPT/HCPCS: 36415; 80053; 85027; 86780; C9803; U0003; U0005

== ENCOUNTER 2021-08-07 12:31 | Inpatient (IN) | payer OTHER ==
[2021-08-07] MEDS ORDERED: ONDANSETRON *ODT* 4 MG TABLET SL PRN (14:41)
[2021-08-07] MEDS ORDERED: BISMUTH SUBSALICYLATE 262 MG/15 ML BTL PO PRN (14:41)
[2021-08-07] MEDS ORDERED: NICOTINE 10 MG CARTRIDGE (INHALER) IH PRN (14:41)
[2021-08-07] MEDS ORDERED: ACETAMINOPHEN 325 MG TABLET (FP) PO PRN ×2 (14:41)
[2021-08-07] MEDS ORDERED: IBUPROFEN 400 MG TABLET (FP) PO PRN (14:41)
[2021-08-07] MEDS ORDERED: cloNIDine HCL 0.1 MG TABLET PO PRN (14:41)
[2021-08-07] MEDS ORDERED: MAGNESIUM HYDROX 2400MG/30ML ORAL SUSPENSION 30 ML CUP PO PRN (14:41)
[2021-08-07] MEDS ORDERED: methaDONE HCL 10 MG TABLET (FOR DETOX USE ONLY) PO ONE (14:41)
[2021-08-07] MEDS ORDERED: MENTHOL/PHENOL 1 EACH UD MM PRN (14:41)
[2021-08-07] MEDS ORDERED: MAG HYDROX/AL HYDROX/SIMETH 30 ML UNIT-DOSE CUP PO PRN (14:41)
[2021-08-07] MEDS ORDERED: MAGNESIUM CITRATE 300 ML BOTTLE PO PRN (14:41)
[2021-08-07] MEDS ORDERED: NALOXONE (NARCAN) HCL 4 MG/0.1 ML SPRAY NS SCH (15:00)
[2021-08-07 15:21] VITALS: BMI 30.9
[2021-08-07] MEDS: diazePAM 5 MG TABLET PO SCH ×2 (17:54→22:36)
[2021-08-07] MEDS: hydrOXYzine PAMOATE 25 MG CAPSULE (FP) PO SCH ×2 (17:55→22:36)
[2021-08-07 18:00] LABS: SYPHILIS W/ RPR CONF NON-REACTIVE (NONREACTIVE)
[2021-08-07] MEDS ORDERED: NALOXONE (NARCAN) HCL 4 MG/0.1 ML SPRAY NS PRN (19:14)
[2021-08-07] MEDS: MELATONIN 5 MG TABLETS PO SCH (22:35)
[2021-08-07] MEDS: THIAMINE HCL 100 MG TABLET (FP) PO SCH (22:36)
[2021-08-08] MEDS: diazePAM 5 MG TABLET PO PRN ×2 (02:48→21:14)
[2021-08-08] MEDS: hydrOXYzine PAMOATE 25 MG CAPSULE (FP) PO SCH ×5 (06:23→21:13)
[2021-08-08] MEDS: diazePAM 5 MG TABLET PO SCH ×4 (06:24→23:46)
[2021-08-08] MEDS ORDERED: PANTOPRAZOLE 20 MG TABLET PO ONE (09:15)
[2021-08-08] MEDS ORDERED: methaDONE HCL 10 MG TABLET (FOR DETOX USE ONLY) ONE (09:21)
[2021-08-08 09:41] LABS: HIV INTERPRETATION NEGATIVE (NEGATIVE)
[2021-08-08 09:59] LABS: CALCIUM 9.7 mg/dL (8.5-10.1)
[2021-08-08 10:00] LABS: ALBUMIN 3.7 g/dl (3.4-5.0)
[2021-08-08 10:01] LABS: HEMATOCRIT 41.5 % (35.4-49); HEMOGLOBIN 13.8 GM/dL (11.7-16.9); MCH 29.5 pg (25.7-33.7); MCHC 33.3 g/dl (32.0-35.9); MEAN CELL VOLUME 88.6 fl (80-96); MEAN PLT VOLUME 7.9 fl (7.5-11.1); PLATELET COUNT 326 10^3/uL (134-434); RBC 4.69 M/mm3 (4.00-5.60); RDW 12.7 % (11.9-15.9); WHITE BLOOD COUNT 4.9 K/mm3 (4.0-10.0)
[2021-08-08 10:03] LABS: CREATININE 0.8 mg/dL (0.55-1.3)
[2021-08-08 10:04] LABS: BILIRUBIN,TOTAL 0.4 mg/dL (0.2-1)
[2021-08-08] MEDS: PRENATAL VITAMINS W/ FOLIC ACID TABLET (FP) PO SCH (10:31)
[2021-08-08] MEDS: METHOCARBAMOL 500 MG TABLET PO PRN (10:32)
[2021-08-08 20:57] VITALS: TEMP 97.5
[2021-08-08] MEDS: THIAMINE HCL 100 MG TABLET (FP) PO SCH (21:13)
[2021-08-08] MEDS: MELATONIN 5 MG TABLETS PO SCH (21:13)
[2021-08-08 21:19] VITALS: PULSE 69
[2021-08-09] MEDS: diazePAM 5 MG TABLET PO PRN ×2 (01:30→09:04)
[2021-08-09] MEDS: hydrOXYzine PAMOATE 25 MG CAPSULE (FP) PO SCH ×2 (05:42→10:31)
[2021-08-09] MEDS ORDERED: diazePAM 5 MG TABLET PO SCH (06:00)
[2021-08-09 06:49] VITALS: BP 114/63
[2021-08-09] MEDS ORDERED: methaDONE HCL 10 MG TABLET (FOR DETOX USE ONLY) PO ONE (10:00)
[2021-08-09] MEDS: PRENATAL VITAMINS W/ FOLIC ACID TABLET (FP) PO SCH (10:30)
[2021-08-09] MEDS: METHOCARBAMOL 500 MG TABLET PO PRN (10:31)
[2021-08-10] MEDS ORDERED: diazePAM 5 MG TABLET PO SCH (06:00)
[2021-08-11] MEDS ORDERED: diazePAM 5 MG TABLET PO ONE (06:00)
[2021-08-11] MEDS ORDERED: methaDONE HCL 10 MG TABLET (FOR DETOX USE ONLY) PO ONE (10:00)
== END 2021-08-09 13:23 | disposition left against medical advice (07) | DRG 770 ==
LOC: YASAS 12:31 → Y6N 16:53
PROVIDERS: ADMIT Allergy & Immunology; ATTEND Allergy & Immunology
PROC: HZ2ZZZZ Detoxification Services for Substance Abuse Treatment (ICD-10-PCS; principal; 2021-08-07)
DX: F11.23 Opioid dependence with withdrawal (principal); F10.230 Alcohol dependence with withdrawal, uncomplicated; F13.20 Sedative, hypnotic or anxiolytic dependence, uncomplicated; F14.10 Cocaine abuse, uncomplicated; F12.10 Cannabis abuse, uncomplicated; F17.210 Nicotine dependence, cigarettes, uncomplicated; F19.280 Other psychoactive substance dependence with psychoactive substance-induced anxiety disorder; F41.9 Anxiety disorder, unspecified; I25.10 Atherosclerotic heart disease of native coronary artery without angina pectoris; Z95.5 Presence of coronary angioplasty implant and graft; E11.9 Type 2 diabetes mellitus without complications; K21.9 Gastro-esophageal reflux disease without esophagitis; M54.50 Low back pain, unspecified; G89.29 Other chronic pain; R73.03 Prediabetes; B18.2 Chronic viral hepatitis C; E66.9 Obesity, unspecified; Z68.30 Body mass index [BMI] 30.0-30.9, adult; Z86.69 Personal history of other diseases of the nervous system and sense organs; Z86.19 Personal history of other infectious and parasitic diseases; Z86.11 Personal history of tuberculosis
CPT/HCPCS: 36415; 80053; 85027; 86780; 87389; C9803; U0003; U0005

== ENCOUNTER 2021-10-11 16:04 | Inpatient (IN) | payer OTHER ==
[2021-10-11 17:21] VITALS: BMI 32.7
[2021-10-11] MEDS ORDERED: METHOCARBAMOL 500 MG TABLET PO PRN (21:53)
[2021-10-11] MEDS ORDERED: ACETAMINOPHEN 325 MG TABLET (FP) PO PRN ×2 (21:53)
[2021-10-11] MEDS ORDERED: chlordiazePOXIDE HCL 25 MG CAPSULE PO PRN (21:53)
[2021-10-11] MEDS ORDERED: MAG HYDROX/AL HYDROX/SIMETH 30 ML UNIT-DOSE CUP PO PRN (21:53)
[2021-10-11] MEDS ORDERED: NICOTINE 10 MG CARTRIDGE (INHALER) IH PRN (21:53)
[2021-10-11] MEDS ORDERED: LOPERAMIDE HCL 2 MG CAPSULE PO PRN (21:53)
[2021-10-11] MEDS ORDERED: MELATONIN 5 MG TABLETS PO PRN (21:53)
[2021-10-11] MEDS ORDERED: NICOTINE POLACRILEX 2 MG GUM BUC PRN (21:53)
[2021-10-11] MEDS ORDERED: MENTHOL/PHENOL 1 EACH UD MM PRN (21:53)
[2021-10-11] MEDS ORDERED: chlordiazePOXIDE HCL 10 MG CAPSULE PO ONE (21:53)
[2021-10-11] MEDS ORDERED: BISMUTH SUBSALICYLATE 524 MG/30 ML PO PRN (21:53)
[2021-10-11] MEDS ORDERED: ONDANSETRON *ODT* 4 MG TABLET SL PRN (21:53)
[2021-10-11] MEDS ORDERED: MAGNESIUM CITRATE 300 ML BOTTLE PO PRN (21:53)
[2021-10-11] MEDS ORDERED: IBUPROFEN 400 MG TABLET (FP) PO PRN (21:53)
[2021-10-11] MEDS ORDERED: MAGNESIUM HYDROX 2400MG/30ML ORAL SUSPENSION 30 ML CUP PO PRN (21:53)
[2021-10-11] MEDS ORDERED: SUCRALFATE 1 GM TABLET (FP) PO SCH (22:15)
[2021-10-11] MEDS ORDERED: chlordiazePOXIDE HCL 25 MG CAPSULE PO SCH (23:00)
[2021-10-11] MEDS: THIAMINE HCL 100 MG TABLET (FP) PO SCH ×2 (23:12→23:20)
[2021-10-12] MEDS: diazePAM 5 MG TABLET PO SCH ×4 (05:35→22:16)
[2021-10-12] MEDS ORDERED: methaDONE HCL 40 MG DISPERSABLE TABLET PO ONE (06:00)
[2021-10-12] MEDS: PRENATAL VITAMINS W/ FOLIC ACID TABLET (FP) PO SCH (09:26)
[2021-10-12] MEDS: hydrOXYzine PAMOATE 25 MG CAPSULE (FP) PO PRN (09:27)
[2021-10-12] MEDS ORDERED: PANTOPRAZOLE 20 MG TABLET PO SCH (10:00)
[2021-10-12] MEDS: SUCRALFATE 1 GM/10 ML UNIT DOSE CUPS PO SCH ×2 (10:56→22:15)
[2021-10-12 11:53] LABS: BLOOD UREA NITROGEN 8.5 mg/dL (7-18); CALCIUM 8.9 mg/dL (8.5-10.1)
[2021-10-12 11:54] LABS: ALBUMIN 3.6 g/dl (3.4-5.0)
[2021-10-12 11:57] LABS: CREATININE 0.7 mg/dL (0.55-1.3)
[2021-10-12 11:58] LABS: BILIRUBIN,TOTAL 0.7 mg/dL (0.2-1)
[2021-10-12 12:02] LABS: HEMOGLOBIN 13.2 GM/dL (11.7-16.9); MCH 30.8 pg (25.7-33.7); MCHC 34.9 g/dl (32.0-35.9); MEAN CELL VOLUME 88.4 fl (80-96); MEAN PLT VOLUME 7.6 fl (7.5-11.1); PLATELET COUNT 244 10^3/uL (134-434); RDW 13.7 % (11.9-15.9); WHITE BLOOD COUNT 4.9 K/mm3 (4.0-10.0)
[2021-10-12] MEDS: diazePAM 5 MG TABLET PO PRN (12:59)
[2021-10-12] MEDS ORDERED: QUEtiapine FUMARATE 100 MG TABLET (FP) PO SCH (22:00)
[2021-10-12] MEDS: THIAMINE HCL 100 MG TABLET (FP) PO SCH (22:15)
[2021-10-13] MEDS: diazePAM 5 MG TABLET PO PRN ×2 (02:13→10:30)
[2021-10-13] MEDS ORDERED: chlordiazePOXIDE HCL 25 MG CAPSULE PO SCH (05:00)
[2021-10-13] MEDS: diazePAM 5 MG TABLET PO SCH ×2 (05:51→14:07)
[2021-10-13] MEDS ORDERED: PANTOPRAZOLE 20 MG TABLET PO SCH (07:00)
[2021-10-13] MEDS: SUCRALFATE 1 GM/10 ML UNIT DOSE CUPS PO SCH (10:26)
[2021-10-13] MEDS: PRENATAL VITAMINS W/ FOLIC ACID TABLET (FP) PO SCH (10:26)
[2021-10-13] MEDS ORDERED: methaDONE HCL 10 MG TABLET PO ONE (11:14)
[2021-10-13] MEDS ORDERED: methaDONE 40 MG, methaDONE 30 MG PO ONE (11:30)
[2021-10-13] MEDS ORDERED: methaDONE HCL 10 MG TABLET ONE (13:12)
[2021-10-13] MEDS ORDERED: methaDONE HCL 40 MG DISPERSABLE TABLET ONE (13:12)
[2021-10-13 13:38] VITALS: BP 146/65; PULSE 76; TEMP 97.8
[2021-10-13] MEDS: hydrOXYzine PAMOATE 25 MG CAPSULE (FP) PO PRN (14:07)
[2021-10-14] MEDS ORDERED: chlordiazePOXIDE HCL 10 MG CAPSULE PO PRN
[2021-10-14] MEDS ORDERED: chlordiazePOXIDE HCL 10 MG CAPSULE PO SCH (05:00)
[2021-10-14] MEDS ORDERED: diazePAM 5 MG TABLET PO SCH (06:00)
[2021-10-14] MEDS ORDERED: methaDONE HCL 40 MG DISPERSABLE TABLET PO ONE (06:00)
[2021-10-15] MEDS ORDERED: methaDONE 80 MG, methaDONE 10 MG PO ONE (05:00)
[2021-10-15] MEDS ORDERED: methaDONE HCL 10 MG TABLET PO ONE (05:00)
[2021-10-15] MEDS ORDERED: chlordiazePOXIDE HCL 10 MG CAPSULE PO SCH (05:00)
[2021-10-15] MEDS ORDERED: diazePAM 5 MG TABLET PO ONE (06:00)
[2021-10-16] MEDS ORDERED: chlordiazePOXIDE HCL 10 MG CAPSULE PO ONE (05:00)
== END 2021-10-13 17:45 | disposition left against medical advice (07) | DRG 770 ==
LOC: YASAS 16:04 → Y6N 19:11
PROVIDERS: ADMIT Allergy & Immunology; ATTEND Allergy & Immunology
PROC: HZ2ZZZZ Detoxification Services for Substance Abuse Treatment (ICD-10-PCS; principal; 2021-10-11)
DX: F10.230 Alcohol dependence with withdrawal, uncomplicated (principal); F13.230 Sedative, hypnotic or anxiolytic dependence with withdrawal, uncomplicated; F11.20 Opioid dependence, uncomplicated; F14.20 Cocaine dependence, uncomplicated; F17.210 Nicotine dependence, cigarettes, uncomplicated; F19.282 Other psychoactive substance dependence with psychoactive substance-induced sleep disorder; E11.9 Type 2 diabetes mellitus without complications; I25.10 Atherosclerotic heart disease of native coronary artery without angina pectoris; Z95.5 Presence of coronary angioplasty implant and graft; Z86.19 Personal history of other infectious and parasitic diseases; Z87.438 Personal history of other diseases of male genital organs; Z86.11 Personal history of tuberculosis
CPT/HCPCS: 36415; 80053; 82962; 85027; 86780; 87811; C9803-CS; U0003; U0005

== ENCOUNTER 2021-11-09 19:28 | Inpatient (IN) | payer OTHER ==
[2021-11-09 20:26] VITALS: BMI 32.5
[2021-11-09] MEDS ORDERED: NICOTINE 10 MG CARTRIDGE (INHALER) IH PRN (23:05)
[2021-11-09] MEDS ORDERED: MAGNESIUM CITRATE 300 ML BOTTLE PO PRN (23:05)
[2021-11-09] MEDS ORDERED: BISMUTH SUBSALICYLATE 524 MG/30 ML PO PRN (23:05)
[2021-11-09] MEDS ORDERED: DICYCLOMINE HCL 10 MG CAPSULE PO PRN (23:05)
[2021-11-09] MEDS ORDERED: MAG HYDROX/AL HYDROX/SIMETH 30 ML UNIT-DOSE CUP PO PRN (23:05)
[2021-11-09] MEDS ORDERED: ONDANSETRON *ODT* 4 MG TABLET SL PRN (23:05)
[2021-11-09] MEDS ORDERED: MAGNESIUM HYDROX 2400MG/30ML ORAL SUSPENSION 30 ML CUP PO PRN (23:05)
[2021-11-09] MEDS ORDERED: IBUPROFEN 400 MG TABLET (FP) PO PRN (23:05)
[2021-11-09] MEDS ORDERED: ACETAMINOPHEN 325 MG TABLET (FP) PO PRN ×2 (23:05)
[2021-11-09] MEDS ORDERED: BENZOCAINE/MENTHOL (CHLORASEPTIC ) LOZENGE MM PRN (23:05)
[2021-11-09] MEDS ORDERED: LOPERAMIDE HCL 2 MG CAPSULE PO PRN (23:05)
[2021-11-10] MEDS ORDERED: INSULIN SLIDING SCALE (NOVOLOG) 1 VIAL SQ SCH ×5 (07:00)
[2021-11-10] MEDS: INSULIN SLIDING SCALE (NOVOLOG) 1 VIAL SQ SCH ×4 (07:55→22:27)
[2021-11-10] MEDS ORDERED: cloNIDine HCL 0.1 MG TABLET PO PRN (08:45)
[2021-11-10] MEDS ORDERED: methaDONE HCL 10 MG TABLET (FOR DETOX USE ONLY) PO ONE (08:45)
[2021-11-10 09:51] LABS: HEMATOCRIT 35.5 % (35.4-49); HEMOGLOBIN 12.5 GM/dL (11.7-16.9); MCH 30.9 pg (25.7-33.7); MCHC 35.2 g/dl (32.0-35.9); MEAN CELL VOLUME 87.9 fl (80-96); MEAN PLT VOLUME 7.3 fl (7.5-11.1); PLATELET COUNT 313 10^3/uL (134-434); RBC 4.04 M/mm3 (4.00-5.60); RDW 13.1 % (11.9-15.9); WHITE BLOOD COUNT 5.6 K/mm3 (4.0-10.0)
[2021-11-10 10:09] LABS: CALCIUM 8.9 mg/dL (8.5-10.1)
[2021-11-10] MEDS: NICOTINE 14 MG/24 HOURS TOPICAL PATCH TD SCH (10:09)
[2021-11-10] MEDS: PANTOPRAZOLE 20 MG TABLET PO SCH (10:09)
[2021-11-10] MEDS: PRENATAL VITAMINS W/ FOLIC ACID TABLET (FP) PO SCH (10:09)
[2021-11-10 10:10] LABS: BLOOD UREA NITROGEN 11.6 mg/dL (7-18)
[2021-11-10] MEDS: diazePAM 5 MG TABLET PO PRN ×3 (10:11→22:27)
[2021-11-10 10:13] LABS: CREATININE 0.8 mg/dL (0.55-1.3)
[2021-11-10 10:14] LABS: BILIRUBIN,TOTAL 0.5 mg/dL (0.2-1)
[2021-11-10 10:15] LABS: TOT PROT 7.2 g/dl (6.4-8.2)
[2021-11-10] MEDS: METHOCARBAMOL 500 MG TABLET PO PRN ×2 (10:44→22:27)
[2021-11-10] MEDS: metFORMIN HCL 500 MG TABLET (FP) PO SCH (17:25)
[2021-11-10] MEDS: MELATONIN 5 MG TABLETS PO SCH (22:27)
[2021-11-10] MEDS: THIAMINE HCL 100 MG TABLET (FP) PO SCH (22:27)
[2021-11-11] MEDS: metFORMIN HCL 500 MG TABLET (FP) PO SCH ×2 (06:07→20:09)
[2021-11-11] MEDS: INSULIN SLIDING SCALE (NOVOLOG) 1 VIAL SQ SCH ×4 (06:08→23:53)
[2021-11-11] MEDS ORDERED: methaDONE HCL 10 MG TABLET (FOR DETOX USE ONLY) ONE (09:37)
[2021-11-11] MEDS ORDERED: GABAPENTIN 300 MG CAPSULE PO SCH (10:00)
[2021-11-11] MEDS: PANTOPRAZOLE 20 MG TABLET PO SCH (10:04)
[2021-11-11] MEDS: NICOTINE 14 MG/24 HOURS TOPICAL PATCH TD SCH (10:04)
[2021-11-11] MEDS: METHOCARBAMOL 500 MG TABLET PO PRN (10:04)
[2021-11-11] MEDS: PRENATAL VITAMINS W/ FOLIC ACID TABLET (FP) PO SCH (10:08)
[2021-11-11] MEDS: GABAPENTIN 100 MG CAPSULE PO SCH ×2 (10:52→23:11)
[2021-11-11] MEDS ORDERED: diazePAM 5 MG TABLET PO PRN (13:11)
[2021-11-11 14:08] LABS: SARS-CoV-2 NAA Not Detected (Not Detected)
[2021-11-11] MEDS ORDERED: QUEtiapine FUMARATE 100 MG TABLET (FP) PO SCH (22:00)
[2021-11-11] MEDS: MELATONIN 5 MG TABLETS PO SCH (23:12)
[2021-11-11] MEDS: THIAMINE HCL 100 MG TABLET (FP) PO SCH (23:13)
[2021-11-12 06:55] VITALS: TEMP 96.9
[2021-11-12] MEDS: metFORMIN HCL 500 MG TABLET (FP) PO SCH (07:31)
[2021-11-12] MEDS: INSULIN SLIDING SCALE (NOVOLOG) 1 VIAL SQ SCH ×2 (07:31→11:40)
[2021-11-12] MEDS: GABAPENTIN 100 MG CAPSULE PO SCH (09:59)
[2021-11-12] MEDS: PRENATAL VITAMINS W/ FOLIC ACID TABLET (FP) PO SCH (09:59)
[2021-11-12] MEDS: METHOCARBAMOL 500 MG TABLET PO PRN (09:59)
[2021-11-12] MEDS: PANTOPRAZOLE 20 MG TABLET PO SCH (09:59)
[2021-11-12] MEDS ORDERED: methaDONE HCL 10 MG TABLET (FOR DETOX USE ONLY) PO ONE (10:00)
[2021-11-12] MEDS: NICOTINE 14 MG/24 HOURS TOPICAL PATCH TD SCH (10:01)
[2021-11-12 11:11] VITALS: BP 140/66; PULSE 85
[2021-11-14] MEDS ORDERED: methaDONE HCL 10 MG TABLET (FOR DETOX USE ONLY) PO ONE (10:00)
== END 2021-11-12 23:47 | disposition short-term general hospital (02) | DRG 773 ==
LOC: YASAS 19:28 → Y6N 23:19
PROVIDERS: ADMIT Allergy & Immunology; ATTEND Allergy & Immunology
PROC: HZ2ZZZZ Detoxification Services for Substance Abuse Treatment (ICD-10-PCS; principal; 2021-11-09)
DX: F11.23 Opioid dependence with withdrawal (principal); F13.230 Sedative, hypnotic or anxiolytic dependence with withdrawal, uncomplicated; F10.230 Alcohol dependence with withdrawal, uncomplicated; F14.20 Cocaine dependence, uncomplicated; F17.210 Nicotine dependence, cigarettes, uncomplicated; F19.282 Other psychoactive substance dependence with psychoactive substance-induced sleep disorder; F19.280 Other psychoactive substance dependence with psychoactive substance-induced anxiety disorder; F41.9 Anxiety disorder, unspecified; K21.9 Gastro-esophageal reflux disease without esophagitis; I25.10 Atherosclerotic heart disease of native coronary artery without angina pectoris; R56.9 Unspecified convulsions; M54.59 Other low back pain; G89.29 Other chronic pain; R73.03 Prediabetes; E78.5 Hyperlipidemia, unspecified; E66.9 Obesity, unspecified; Z68.32 Body mass index [BMI] 32.0-32.9, adult; W18.39XA Other fall on same level, initial encounter; Y93.89 Activity, other specified; Y92.238 Other place in hospital as the place of occurrence of the external cause; Z86.19 Personal history of other infectious and parasitic diseases; Z95.5 Presence of coronary angioplasty implant and graft; Z86.11 Personal history of tuberculosis; Z28.310 Unvaccinated for COVID-19; Z79.84 Long term (current) use of oral hypoglycemic drugs; Z87.438 Personal history of other diseases of male genital organs
CPT/HCPCS: 36415; 80053; 82962; 85027; 86780; 93005; 93010; C9803-CS; J0735; U0003; U0005

== ENCOUNTER 2021-11-12 11:25 | Observation (INO) | payer OTHER ==
[2021-11-12 11:41] VITALS: TEMP 98.5; BMI 32.5
[2021-11-12] MEDS ORDERED: ACETAMINOPHEN 325 MG TABLET (FP) PO ONE (13:06)
[2021-11-12] MEDS ORDERED: ACETAMINOPHEN 325 MG TABLET (FP) ONE (13:22)
[2021-11-12 13:27] LABS: CHLORIDE 107 mmol/L (98-107); SODIUM 135 mmol/L (136-145)
[2021-11-12 13:28] LABS: CALCIUM 9.2 mg/dL (8.5-10.1)
[2021-11-12 13:30] LABS: ALBUMIN 3.4 g/dl (3.4-5.0); BLOOD UREA NITROGEN 7.2 mg/dL (7-18); CO2 29 mmol/L (21-32); GLUCOSE,RANDOM 93 mg/dL (74-106); HEMATOCRIT 40.2 % (35.4-49); HEMOGLOBIN 13.9 GM/dL (11.7-16.9); MCH 30.5 pg (25.7-33.7); MCHC 34.7 g/dl (32.0-35.9); MEAN PLT VOLUME 7.3 fl (7.5-11.1); PLATELET COUNT 336 10^3/uL (134-434); RBC 4.56 M/mm3 (4.00-5.60); RDW 13.4 % (11.9-15.9); WHITE BLOOD COUNT 4.4 K/mm3 (4.0-10.0)
[2021-11-12 13:32] LABS: CREATININE 0.8 mg/dL (0.55-1.3); SGOT/AST 62 U/L (15-37); SGPT/ALT 38 U/L (13-61)
[2021-11-12 13:34] LABS: BILIRUBIN,TOTAL 0.3 mg/dL (0.2-1); TOT PROT 8.7 g/dl (6.4-8.2)
[2021-11-12 13:35] LABS: ALK PHOS 70 U/L (45-117)
[2021-11-12 13:37] LABS: ANION GAP 0 MMOL/L (8-16)
[2021-11-12 15:09] LABS: ALBUMIN 3.5 g/dl (3.4-5.0); BLOOD UREA NITROGEN 7.6 mg/dL (7-18); CALCIUM 9.3 mg/dL (8.5-10.1)
[2021-11-12 15:11] LABS: CREATININE 0.8 mg/dL (0.55-1.3)
[2021-11-12 15:13] LABS: BILIRUBIN,TOTAL 0.3 mg/dL (0.2-1); TOT PROT 8.1 g/dl (6.4-8.2)
[2021-11-12 15:42] LABS: ANISOCYTOSIS 0; MACROCYTOSIS 0
[2021-11-12] MEDS ORDERED: LORazepam 2 MG TABLET PO ONE (15:51)
[2021-11-12] MEDS ORDERED: LORazepam 1 MG TABLET ONE ×2 (15:54→17:38)
[2021-11-12] MEDS ORDERED: LORazepam 2 MG TABLET PO SCH (17:00)
[2021-11-12] MEDS ORDERED: LORazepam 1 MG TABLET PO PRN (17:27)
[2021-11-12] MEDS ORDERED: METHOCARBAMOL 500 MG TABLET PO PRN (17:31)
[2021-11-12 17:46] VITALS: BP 111/61; PULSE 59
[2021-11-12] MEDS ORDERED: THIAMINE HCL 100 MG TABLET (FP) PO SCH (22:00)
[2021-11-12] MEDS ORDERED: GABAPENTIN 100 MG CAPSULE PO SCH (22:00)
[2021-11-13] MEDS ORDERED: methaDONE HCL 10 MG TABLET (FOR DETOX USE ONLY) PO ONE (10:00)
[2021-11-13] MEDS ORDERED: FOLIC ACID 1 MG TABLET (FP) PO SCH (10:00)
[2021-11-13] MEDS ORDERED: ENOXAPARIN NA (PORCINE) 40 MG/0.4 ML DISP.SYRIN SQ SCH (10:00)
[2021-11-13] MEDS ORDERED: NICOTINE 14 MG/24 HOURS TOPICAL PATCH TD SCH (10:00)
[2021-11-14] MEDS ORDERED: LORazepam 1 MG TABLET PO SCH (05:00)
[2021-11-14] MEDS ORDERED: methaDONE HCL 10 MG TABLET PO ONE (10:00)
[2021-11-15] MEDS ORDERED: LORazepam 0.5 MG TABLET PO PRN
[2021-11-15] MEDS ORDERED: LORazepam 0.5 MG TABLET PO SCH (05:00)
[2021-11-16] MEDS ORDERED: LORazepam 0.5 MG TABLET PO ONE (05:00)
== END 2021-11-12 20:04 | disposition left against medical advice (07) ==
LOC: JER 11:25 → UNDOADMOB 16:16 → JERBED 16:16 → INTOOBSV 16:16 → JERBED 17:29
PROVIDERS: ADMIT Internal Medicine; ATTEND Internal Medicine
DX: R56.9 Unspecified convulsions (principal); F11.20 Opioid dependence, uncomplicated; E66.9 Obesity, unspecified; Z68.32 Body mass index [BMI] 32.0-32.9, adult; K21.9 Gastro-esophageal reflux disease without esophagitis; G89.29 Other chronic pain; M54.9 Dorsalgia, unspecified; F17.210 Nicotine dependence, cigarettes, uncomplicated; I25.10 Atherosclerotic heart disease of native coronary artery without angina pectoris; R73.03 Prediabetes; Z95.5 Presence of coronary angioplasty implant and graft; E78.00 Pure hypercholesterolemia, unspecified; B19.20 Unspecified viral hepatitis C without hepatic coma; H53.149 Visual discomfort, unspecified; Z29.8 Encounter for other specified prophylactic measures
CPT/HCPCS: 36415; 70450-TC; 71045-TC-FY; 80053; 85025; 93005; 93010; 99285-25; G0378

== ENCOUNTER 2022-03-03 17:14 | Inpatient (IN) | payer OTHER ==
[2022-03-03 18:53] VITALS: BMI 31.6
[2022-03-03] MEDS ORDERED: MAG HYDROX/AL HYDROX/SIMETH 30 ML UNIT-DOSE CUP PO PRN (19:30)
[2022-03-03] MEDS ORDERED: cloNIDine HCL 0.1 MG TABLET PO PRN (19:30)
[2022-03-03] MEDS ORDERED: METHOCARBAMOL 500 MG TABLET PO PRN (19:30)
[2022-03-03] MEDS ORDERED: ONDANSETRON *ODT* 4 MG TABLET SL PRN (19:30)
[2022-03-03] MEDS ORDERED: ACETAMINOPHEN 325 MG TABLET (FP) PO PRN ×2 (19:30)
[2022-03-03] MEDS ORDERED: methaDONE HCL 10 MG TABLET (FOR DETOX USE ONLY) PO ONE (19:30)
[2022-03-03] MEDS ORDERED: MAGNESIUM CITRATE 300 ML BOTTLE PO PRN (19:30)
[2022-03-03] MEDS ORDERED: IBUPROFEN 400 MG TABLET (FP) PO PRN (19:30)
[2022-03-03] MEDS ORDERED: BENZOCAINE/MENTHOL (CHLORASEPTIC ) LOZENGE MM PRN (19:30)
[2022-03-03] MEDS ORDERED: BISMUTH SUBSALICYLATE 524 MG/30 ML PO PRN (19:30)
[2022-03-03] MEDS ORDERED: MAGNESIUM HYDROX 2400MG/30ML ORAL SUSPENSION 30 ML CUP PO PRN (19:30)
[2022-03-03] MEDS ORDERED: IBUPROFEN 600 MG TABLET (FP) PO PRN (19:30)
[2022-03-03] MEDS ORDERED: DICYCLOMINE HCL 10 MG CAPSULE PO PRN (19:30)
[2022-03-03] MEDS ORDERED: LOPERAMIDE HCL 2 MG CAPSULE PO PRN (19:30)
[2022-03-03] MEDS ORDERED: METHOCARBAMOL 500 MG TABLET ONE (20:56)
[2022-03-03] MEDS ORDERED: THIAMINE HCL 100 MG TABLET (FP) PO SCH (22:00)
[2022-03-03] MEDS ORDERED: MELATONIN 5 MG TABLETS PO SCH (22:00)
[2022-03-04] MEDS: diazePAM 5 MG TABLET PO SCH ×4 (00:12→17:30)
[2022-03-04] MEDS: hydrOXYzine PAMOATE 25 MG CAPSULE (FP) PO SCH ×4 (00:12→17:31)
[2022-03-04] MEDS ORDERED: hydrOXYzine PAMOATE 25 MG CAPSULE (FP) PO ONE ×2 (05:48→10:13)
[2022-03-04] MEDS ORDERED: diazePAM 5 MG TABLET ONE ×2 (05:48→10:12)
[2022-03-04] MEDS ORDERED: PRENATAL VITAMINS W/ FOLIC ACID TABLET (FP) PO SCH (10:00)
[2022-03-04] MEDS ORDERED: methaDONE HCL 10 MG TABLET (FOR DETOX USE ONLY) ONE (10:13)
[2022-03-04] MEDS ORDERED: PANTOPRAZOLE 40 MG TABLET PO SCH (11:30)
[2022-03-04] MEDS: diazePAM 5 MG TABLET PO PRN ×2 (13:43→19:16)
[2022-03-04 15:27] LABS: HEMATOCRIT 35.3 % (35.4-49); HEMOGLOBIN 12.3 GM/dL (11.7-16.9); MCH 29.9 pg (25.7-33.7); MCHC 34.9 g/dl (32.0-35.9); MEAN CELL VOLUME 85.7 fl (80-96); MEAN PLT VOLUME 7.3 fl (7.5-11.1); PLATELET COUNT 261 10^3/uL (134-434); RBC 4.12 M/mm3 (4.00-5.60); RDW 12.8 % (11.9-15.9); WHITE BLOOD COUNT 4.1 K/mm3 (4.0-10.0)
[2022-03-04 15:36] LABS: ALBUMIN 3.2 g/dl (3.4-5.0); CALCIUM 8.9 mg/dL (8.5-10.1)
[2022-03-04 15:37] LABS: BLOOD UREA NITROGEN 8.7 mg/dL (7-18)
[2022-03-04 15:40] LABS: CREATININE 0.8 mg/dL (0.55-1.3)
[2022-03-04 15:41] LABS: BILIRUBIN,TOTAL 0.3 mg/dL (0.2-1); TOT PROT 7.4 g/dl (6.4-8.2)
[2022-03-04 19:09] VITALS: BP 119/57; PULSE 62; RESP 17; TEMP 97.3
[2022-03-05] MEDS ORDERED: diazePAM 5 MG TABLET PO SCH (06:00)
[2022-03-05] MEDS ORDERED: methaDONE HCL 10 MG TABLET (FOR DETOX USE ONLY) PO ONE (10:00)
[2022-03-06] MEDS ORDERED: diazePAM 5 MG TABLET PO SCH (06:00)
[2022-03-07] MEDS ORDERED: diazePAM 5 MG TABLET PO ONE (06:00)
[2022-03-07] MEDS ORDERED: methaDONE HCL 10 MG TABLET (FOR DETOX USE ONLY) PO ONE (10:00)
== END 2022-03-04 21:00 | disposition left against medical advice (07) | DRG 770 ==
LOC: YASAS 17:14 → Y6N 03-04 12:05
PROVIDERS: ADMIT Allergy & Immunology; ATTEND Surgery
PROC: HZ2ZZZZ Detoxification Services for Substance Abuse Treatment (ICD-10-PCS; principal; 2022-03-04)
DX: F11.23 Opioid dependence with withdrawal (principal); F14.20 Cocaine dependence, uncomplicated; F13.20 Sedative, hypnotic or anxiolytic dependence, uncomplicated; F17.210 Nicotine dependence, cigarettes, uncomplicated; F41.9 Anxiety disorder, unspecified; F32.A Depression, unspecified; E78.5 Hyperlipidemia, unspecified; I25.10 Atherosclerotic heart disease of native coronary artery without angina pectoris; Z95.5 Presence of coronary angioplasty implant and graft; K21.9 Gastro-esophageal reflux disease without esophagitis; M54.50 Low back pain, unspecified; G89.29 Other chronic pain; R73.03 Prediabetes; Z86.11 Personal history of tuberculosis; Z86.19 Personal history of other infectious and parasitic diseases; Z28.310 Unvaccinated for COVID-19
CPT/HCPCS: 36415; 80053; 85027; 86780; 87811; C9803-CS; J0735; U0003; U0005

== ENCOUNTER 2022-09-20 18:37 | Inpatient (IN) | payer OTHER ==
[2022-09-20 19:22] VITALS: BMI 33.6
[2022-09-20] MEDS ORDERED: DICYCLOMINE HCL 10 MG CAPSULE PO PRN (19:51)
[2022-09-20] MEDS ORDERED: NALOXONE HCL 0.4 MG/ML VIAL IM PRN (19:51)
[2022-09-20] MEDS ORDERED: POLYETHYLENE GLYCOL (HEALTHYLAX) 3350 17 GM PACKET PO PRN (19:51)
[2022-09-20] MEDS ORDERED: IBUPROFEN 400 MG TABLET (FP) PO PRN (19:51)
[2022-09-20] MEDS ORDERED: NICOTINE POLACRILEX 2 MG GUM BUC PRN (19:51)
[2022-09-20] MEDS ORDERED: NALOXONE HCL (KLOXXADO) 8 MG SPRAY NS PRN (19:51)
[2022-09-20] MEDS ORDERED: ACETAMINOPHEN 325 MG TABLET (FP) PO PRN ×2 (19:51)
[2022-09-20] MEDS ORDERED: IBUPROFEN 600 MG TABLET (FP) PO PRN (19:51)
[2022-09-20] MEDS ORDERED: ONDANSETRON *ODT* 4 MG TABLET SL PRN (19:51)
[2022-09-20] MEDS ORDERED: LOPERAMIDE HCL 2 MG CAPSULE PO PRN (19:51)
[2022-09-20] MEDS ORDERED: guaiFENesin 200 MG/10 ML 10 ML UNIT-DOSE CUPS PO PRN (19:51)
[2022-09-20] MEDS ORDERED: BENZOCAINE/MENTHOL (CHLORASEPTIC ) LOZENGE MM PRN (19:51)
[2022-09-20] MEDS ORDERED: P-EPHED 60MG/TRIPROLIDI 2.5MG TABLET PO PRN (19:51)
[2022-09-20] MEDS ORDERED: MAGNESIUM HYDROX 2400MG/30ML ORAL SUSPENSION 30 ML CUP PO PRN (19:51)
[2022-09-20] MEDS ORDERED: MAG HYDROX/AL HYDROX/SIMETH 30 ML UNIT-DOSE CUP PO PRN (19:51)
[2022-09-20] MEDS ORDERED: BISMUTH SUBSALICYLATE 524 MG/30 ML PO PRN (19:51)
[2022-09-20] MEDS ORDERED: hydrOXYzine PAMOATE 25 MG CAPSULE (FP) PO PRN (19:51)
[2022-09-20] MEDS ORDERED: diazePAM 5 MG TABLET PO PRN (19:53)
[2022-09-20] MEDS ORDERED: IBUPROFEN 600 MG TABLET (FP) PO ONE (20:55)
[2022-09-20] MEDS: MELATONIN 5 MG TABLETS PO PRN (21:57)
[2022-09-20] MEDS: THIAMINE HCL 100 MG TABLET (FP) PO SCH (21:57)
[2022-09-21] MEDS ORDERED: LORazepam 1 MG TABLET PO PRN (09:53)
[2022-09-21] MEDS ORDERED: cloNIDine HCL 0.1 MG TABLET PO PRN (09:53)
[2022-09-21] MEDS ORDERED: PATIENT'S OWN MEDICATION (NON-FORMULARY) (Omeprazole Magnesium [Omeprazole Magnesium] 20 M PO SCH (10:00)
[2022-09-21] MEDS ORDERED: methaDONE HCL 10 MG TABLET (FOR DETOX USE ONLY) PO ONE (10:15)
[2022-09-21] MEDS: LORazepam 2 MG TABLET PO SCH ×3 (10:31→22:16)
[2022-09-21] MEDS: PANTOPRAZOLE 40 MG TABLET PO SCH (10:32)
[2022-09-21] MEDS: PRENATAL VITAMINS W/ FOLIC ACID TABLET (FP) PO SCH (10:32)
[2022-09-21 12:43] LABS: HEMATOCRIT 34.8 % (35.4-49); HEMOGLOBIN 11.9 GM/dL (11.7-16.9); MCH 30.6 pg (25.7-33.7); MCHC 34.1 g/dl (32.0-35.9); MEAN CELL VOLUME 89.7 fl (80-96); MEAN PLT VOLUME 8.2 fl (7.5-11.1); PLATELET COUNT 202 10^3/uL (134-434); RBC 3.88 M/mm3 (4.00-5.60); WHITE BLOOD COUNT 4.6 K/mm3 (4.0-10.0)
[2022-09-21 13:11] LABS: BLOOD UREA NITROGEN 9.1 mg/dL (7-18); CALCIUM 8.6 mg/dL (8.5-10.1)
[2022-09-21 13:13] LABS: CREATININE 0.8 mg/dL (0.55-1.3)
[2022-09-21 13:16] LABS: BILIRUBIN,TOTAL 0.3 mg/dL (0.2-1); TOT PROT 6.6 g/dl (6.4-8.2)
[2022-09-21] MEDS: METHOCARBAMOL 500 MG TABLET PO PRN (17:38)
[2022-09-21] MEDS ORDERED: NICOTINE 10 MG CARTRIDGE (INHALER) IH SCH (19:00)
[2022-09-21] MEDS ORDERED: NICOTINE 10 MG CARTRIDGE (INHALER) IH PRN (20:08)
[2022-09-21] MEDS: GABAPENTIN 300 MG CAPSULE PO SCH (22:14)
[2022-09-21] MEDS: THIAMINE HCL 100 MG TABLET (FP) PO SCH (22:14)
[2022-09-21] MEDS: MELATONIN 5 MG TABLETS PO PRN (22:14)
[2022-09-21] MEDS: QUEtiapine FUMARATE 100 MG TABLET (FP) PO SCH (22:14)
[2022-09-22] MEDS: GABAPENTIN 300 MG CAPSULE PO SCH ×3 (05:45→22:19)
[2022-09-22] MEDS: LORazepam 2 MG TABLET PO SCH ×4 (05:46→22:19)
[2022-09-22] MEDS: PRENATAL VITAMINS W/ FOLIC ACID TABLET (FP) PO SCH (10:46)
[2022-09-22] MEDS: PANTOPRAZOLE 40 MG TABLET PO SCH (10:49)
[2022-09-22] MEDS: QUEtiapine FUMARATE 100 MG TABLET (FP) PO SCH ×2 (10:49→22:18)
[2022-09-22] MEDS: METHOCARBAMOL 500 MG TABLET PO PRN (22:18)
[2022-09-22] MEDS: MELATONIN 5 MG TABLETS PO PRN (22:18)
[2022-09-22] MEDS: THIAMINE HCL 100 MG TABLET (FP) PO SCH (22:19)
[2022-09-23] MEDS: LORazepam 1 MG TABLET PO SCH ×2 (06:00→10:22)
[2022-09-23] MEDS: GABAPENTIN 300 MG CAPSULE PO SCH ×2 (06:40→15:07)
[2022-09-23] MEDS ORDERED: methaDONE HCL 10 MG TABLET (FOR DETOX USE ONLY) PO ONE (10:00)
[2022-09-23] MEDS: PRENATAL VITAMINS W/ FOLIC ACID TABLET (FP) PO SCH (10:22)
[2022-09-23] MEDS: PANTOPRAZOLE 40 MG TABLET PO SCH (10:22)
[2022-09-23] MEDS: QUEtiapine FUMARATE 100 MG TABLET (FP) PO SCH (10:22)
[2022-09-23 13:24] VITALS: BP 108/70; PULSE 72; RESP 20; TEMP 98.9
[2022-09-24] MEDS ORDERED: LORazepam 0.5 MG TABLET PO PRN
[2022-09-24] MEDS ORDERED: LORazepam 0.5 MG TABLET PO SCH (05:00)
[2022-09-25] MEDS ORDERED: LORazepam 0.5 MG TABLET PO ONE (05:00)
[2022-09-25] MEDS ORDERED: methaDONE HCL 10 MG TABLET (FOR DETOX USE ONLY) PO ONE (10:00)
== END 2022-09-23 15:54 | disposition left against medical advice (07) | DRG 770 ==
LOC: YASAS 18:37 → Y3N 20:10
PROVIDERS: ADMIT Allergy & Immunology; ATTEND Surgery
PROC: HZ2ZZZZ Detoxification Services for Substance Abuse Treatment (ICD-10-PCS; principal; 2022-09-20)
DX: F11.23 Opioid dependence with withdrawal (principal); F13.20 Sedative, hypnotic or anxiolytic dependence, uncomplicated; F14.10 Cocaine abuse, uncomplicated; F17.210 Nicotine dependence, cigarettes, uncomplicated; I25.10 Atherosclerotic heart disease of native coronary artery without angina pectoris; K21.9 Gastro-esophageal reflux disease without esophagitis; E78.5 Hyperlipidemia, unspecified; E11.9 Type 2 diabetes mellitus without complications; E66.9 Obesity, unspecified; Z68.33 Body mass index [BMI] 33.0-33.9, adult; Z98.61 Coronary angioplasty status; Z86.11 Personal history of tuberculosis; Z28.310 Unvaccinated for COVID-19; Z28.9 Immunization not carried out for unspecified reason
CPT/HCPCS: 36415; 80053; 83036; 85027; 86780; 87811; C9803-CS; U0003; U0005